=== PATIENT | female | born 1950 | race Caucasian/White ===

== ENCOUNTER → 2017-12-19 | Outpatient (CLI) | payer MEDICARE ==
[2017-12-19 15:33] LABS: HCT 42.9 % (34.0-46.0); HGB 13.9 gm/dL (11.4-16.0); MCH 28.7 pg (25.0-35.0); MCHC 32.3 g/dL (31.0-37.0); MCV 88.7 fL (80.0-100.0); Mean Platelet Volume 7.1; Platelet Count 351 k/uL (150-450); RBC 4.84 m/uL (3.80-5.40); RDW 12.9 % (11.5-15.5); WBC 9.5 k/uL (3.8-10.6)
[2017-12-19 15:50] LABS: ALT 30 U/L (9-52); AST 31 U/L (14-36); Albumin 4.5 g/dL (3.5-5.0); Alkaline Phosphatase 95 U/L (38-126); Anion Gap 14 mmol/L; Blood Urea Nitrogen 13 mg/dL (7-17); Calcium 9.9 mg/dL (8.4-10.2); Carbon Dioxide 32 mmol/L (22-30); Chloride 101 mmol/L (98-107); Cholesterol 189 mg/dL (<200); Glucose 101 mg/dL (74-99); HDL Cholesterol 70 mg/dL (40-60); LDL Cholesterol,Calculated 80 mg/dL (0-99); Potassium 4.6 mmol/L (3.5-5.1); Sodium 147 mmol/L (137-145); Total Bilirubin 0.5 mg/dL (0.2-1.3); Total Protein 7.6 g/dL (6.3-8.2); Triglycerides 196 mg/dL (<150)
[2017-12-19 21:03] LABS: Hemoglobin A1C 6.2 % (4.0-6.0)
== END | disposition home or self-care (01) ==
LOC: LABWHC1 15:10
PROVIDERS: ATTEND Family Medicine
DX: E11.9 Type 2 diabetes mellitus without complications (principal); I20.9 Angina pectoris, unspecified
CPT/HCPCS: 36415; 80053; 80061; 83036; 83695; 84443; 85027

== ENCOUNTER → 2018-02-13 | Outpatient (CLI) | payer MEDICARE ==
--- NOTE | 2018-02-13 12:39 | P.STRESS ---
- Stress Test Note Stress Test Results/Findings: Exam Performed: stress echo exercise Exam Date: 02/13/18 Reason for Exam: CHEST PAIN Height: 5 ft 5 in Weight: 65.771 kg Protocol: ALFRED+ Stage: 2 Duration of Exercise: 4:00 Resting Heart Rate: 78 Resting Blood Pressure: 151/67 Maximum Achieved Heart Rate: 149 Maximum Achieved Blood Pressure: 199/59 85% PMHR: 129 100% PMHR: 152 METS: 5.8 Technologist Comment: Stress Test Results/Findings: This is a 67-year-old female with history of her hypertension and hypercholesterolemia and smoking history, being evaluated for symptoms of chest pain, shortness of breath and palpitations. Stress data: Baseline EKG showed sinus rhythm with nonspecific ST-T abnormalities. Patient walked on the Alfred protocol for 4 minutes achieving a maximum heart rate of 149 with a blood pressure of 199/59. EKGs taken during and after the exercise did not reveal any changes to suggest ischemia. Echo data: Baseline echo images showed normal wall motion and thickening. Exercise echo images showed augmentation of the wall motion and thickening in all segments. Final impression: #1. Negative stress test #2. Negative stress echo.
== END | disposition home or self-care (01) ==
LOC: RADNMMAIN 09:47
PROVIDERS: ATTEND Family Medicine
DX: R07.9 Chest pain, unspecified (principal)
CPT/HCPCS: 93351

== ENCOUNTER → 2019-02-20 | Outpatient (CLI) | payer MEDICARE ==
[2019-02-20 10:47] LABS: Basophils # (A) 0.1 k/uL (0-0.2); Basophils % (A) 1 %; Eosinophils # (A) 0.2 k/uL (0-0.7); Eosinophils % (A) 2 %; HCT 42.3 % (34.0-46.0); HGB 13.1 gm/dL (11.4-16.0); Lymphocytes # (A) 1.9 k/uL (1.0-4.8); Lymphocytes % (A) 27 %; MCH 28.3 pg (25.0-35.0); MCHC 30.9 g/dL (31.0-37.0); MCV 91.8 fL (80.0-100.0); Mean Platelet Volume 6.9; Monocytes # (A) 0.4 k/uL (0-1.0); Monocytes % (A) 6 %; Neutrophils # (A) 4.3 k/uL (1.3-7.7); Neutrophils % (A) 62 %; Platelet Count 331 k/uL (150-450); RBC 4.61 m/uL (3.80-5.40); RDW 13.5 % (11.5-15.5)
[2019-02-20 13:05] LABS: Appearance,Urine Clear (Clear); Bilirubin,Urine Negative (Negative); Blood,Urine Negative (Negative); Color,Urine Yellow; Glucose,Urine (UA) Negative (Negative); Ketones,Urine Negative (Negative); Leukocyte Esterase,Urine Small (Negative); Mucus,Urine Rare /hpf; Nitrite,Urine Negative (Negative); PH, Urine 6.5 (5.0-8.0); Protein,Urine Negative (Negative); RBC,Urine <1 /hpf (0-5); Specific Gravity,Urine 1.016 (1.001-1.035); Squamous Epithelial Cell,Urine <1 /hpf (0-4); Urobilinogen,Urine <2.0 mg/dL (<2.0); WBC,Urine 4 /hpf (0-5)
[2019-02-20 16:40] LABS: African American GFR (CKD) 102.5 (60.0-200.0); Albumin 4.4 g/dL (3.80-4.90); Albumin/Globulin Ratio 1.63 (1.60-3.17); Anion Gap 11.5 mmol/L (4.00-12.00); BUN/Creat Ratio 17.14 Ratio (12.00-20.00); Calcium 9.6 mg/dL (8.7-10.3); Carbon Dioxide 28.5 mmol/L (21.6-31.8); Globulin 2.7 g/dL (1.6-3.3); Potassium 4.8 mmol/L (3.5-5.5); Total Bilirubin 0.5 mg/dL (0.3-1.2); Total Protein 7.1 g/dL (6.2-8.2)
[2019-02-20 17:41] LABS: Hemoglobin A1C 6.1 % (4.0-6.0)
== END | disposition home or self-care (01) ==
LOC: LABWHC1 09:24
PROVIDERS: ATTEND Family Medicine
DX: I10 Essential (primary) hypertension (principal); R73.9 Hyperglycemia, unspecified
CPT/HCPCS: 36415; 80053; 80061; 81001; 83036; 84439; 84443; 85025

== ENCOUNTER → 2020-04-26 | Outpatient (CLI) | payer MEDICARE ==
[2020-04-26 09:48] LABS: Basophils # (A) 0.1 k/uL (0-0.2); Basophils % (A) 1 %; Eosinophils # (A) 0.1 k/uL (0-0.7); Eosinophils % (A) 1 %; HCT 44.2 % (34.0-46.0); HGB 14.1 gm/dL (11.4-16.0); Lymphocytes # (A) 2.4 k/uL (1.0-4.8); Lymphocytes % (A) 24 %; MCH 29.3 pg (25.0-35.0); MCHC 31.8 g/dL (31.0-37.0); MCV 92.1 fL (80.0-100.0); Mean Platelet Volume 7.3; Monocytes # (A) 0.7 k/uL (0-1.0); Monocytes % (A) 7 %; Neutrophils # (A) 6.6 k/uL (1.3-7.7); Neutrophils % (A) 66 %; Platelet Count 326 k/uL (150-450); RBC 4.79 m/uL (3.80-5.40); RDW 13.7 % (11.5-15.5); WBC 10.1 k/uL (3.8-10.6)
[2020-04-26 09:55] LABS: Potassium 4.7 mmol/L (3.5-5.1)
== END | disposition home or self-care (01) ==
LOC: LABPAT 08:48
PROVIDERS: ATTEND Orthopaedic Surgery
DX: Z01.818 Encounter for other preprocedural examination (principal); M75.42 Impingement syndrome of left shoulder
CPT/HCPCS: 36415; 80051; 85025; 93005

== ENCOUNTER 2020-04-29 09:14 | Day surgery (SDC) | payer MEDICARE ==
[2020-04-27 08:55] VITALS: BMI 25.0
--- NOTE | 2020-04-28 15:14 | HP ---
HISTORY AND PHYSICAL DATE OF SURGERY: 04/29/2020 Antoinette Ellis is a 69-year-old patient seen with progressive left shoulder pain. We discussed options for treatment. She elected to proceed with arthroscopy. Consent was obtained. PAST MEDICAL HISTORY: Hypertension, gastroesophageal reflux disease. PAST SURGICAL HISTORY: Cataract surgery, cholecystectomy, hysterectomy, right total knee arthroplasty. DAILY MEDICATIONS: Aspirin, atorvastatin, losartan, metoprolol, omeprazole, vitamins. ALLERGIES: AMOXICILLIN, ERYTHROMYCIN. SOCIAL HISTORY: She denies current tobacco use. PHYSICAL EVALUATION OF THE LEFT SHOULDER: Flexion is 120 degrees, abduction is 100 degrees, external rotation is 25 degrees with weakness,.tenderness along the anterolateral acromion and acromioclavicular joint. Impingement positive 80. Drop-arm sign is positive. Distal neurovascular exam is intact. RADIOGRAPHS: Radiographs of the left shoulder revealed a type 2 acromion, acromioclavicular joint osteoarthritis and cystic changes of the tuberosity. Left shoulder MRI revealed a labral tear, rotator cuff tear and osteoarthritic changes. IMPRESSION: 1. Left shoulder impingement with rotator cuff tear. 2. Left shoulder labral tear. 3. Hypertension. 4. Hyperlipidemia. PLAN: Arthroscopy left shoulder with decompression, rotator cuff repair, Ritu and debridement. MMODL / IJN: [id number] /
[~2020-04-29 09:14] MED LIST: LACTATED RINGERS 1,000 ML IV SCH
[2020-04-29] MEDS ORDERED: ONDANSETRON 4 MG/2 ML VIAL ONE (10:03)
[2020-04-29] MEDS ORDERED: LIDOCAINE 1% (10MG/ML) FOR IV START INTRADERMA ONE (10:10)
[2020-04-29] MEDS ORDERED: DEXAMETHASONE SOD PHOSPHATE 10 MG/ML 1 ML VIAL IV ONE (10:10)
[2020-04-29] MEDS ORDERED: MIDAZOLAM 2 MG/2 ML VIAL IV ONE (10:16)
[2020-04-29] MEDS ORDERED: fentaNYL (PF) 50 MCG/ML 2 ML AMP IV ONE (10:16)
--- NOTE | 2020-04-29 10:38 | P.ANPRN ---
Procedure Note - Anesthesia - Nerve Block Performed Left Interscalene Single Time Out Performed: Yes (1016) Date of Procedure: 04/29/20 Procedure Start Time: :17 Procedure Stop Time: : Location of Patient: PreOp Indication: Acute Post-Operative Pain, Requested by Surgeon Specifically requested for management of pain by DrToya: Jessee Carl Sedation Type: Sedate with meaningful contact maintained Preparation: Sterile Prep Position: Supine Catheter: None Needle Types: Pajunk Needle Gauge: 21 Ultrasound used to visualize needle placement: Yes Ultrasound used to observe medication spread: Yes Injectate: 0.5% Ropivacaine (see comment for volume) (30CC) Blood Aspirated: No Pain Paresthesia on Injection Noted: No Resistance on Injection: Normal Image Stored and Saved: Yes Events: Uneventful and Well Tolerated
[2020-04-29] MEDS ORDERED: SUCCINYLCHOLINE CHLORIDE 100 MG/5 ML SYR IV ONE (11:04)
[2020-04-29] MEDS ORDERED: MIDAZOLAM 2 MG/2 ML VIAL ONE (11:04)
[2020-04-29] MEDS ORDERED: PROPOFOL 10 MG/ML 20 ML VIAL IV ONE (11:04)
[2020-04-29] MEDS ORDERED: ROPIVACAINE 5 MG/ML 30 ML VIAL ONE (11:04)
[2020-04-29] MEDS ORDERED: LIDOCAINE 1% INJ 10MG/ML (20 ML MDV) ONE (11:04)
--- NOTE | 2020-04-29 12:41 | P.OP ---
Date of Procedure: 04/29/20 Preoperative Diagnosis: Left shoulder impingement Postoperative Diagnosis: 1. Left shoulder rotator cuff tear 2. Left shoulder impingement 3. Left shoulder acromioclavicular joint osteoarthritis 4. Left shoulder partial long head biceps tendon tear 5. 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 Left shoulder arthroscopic rotator cuff repair 2. Left shoulder arthroscopic subacromial decompression 3. Left shoulder arthroscopic Ritu procedure 4. Left shoulder arthroscopic biceps tenotomy 5. Left shoulder arthroscopic chondroplasty glenohumeral joint Implants: 14.75 Arthrex swivel lock anchor Anesthesia: GETA, regional (Interscalene block) Surgeon: Jessee Carl Rn Managed Care #1: Mayo Garcia Estimated Blood Loss (ml): 10 Pathology: none sent Condition: stable Disposition: PACU Indications for Procedure: 69-year-old patient seen with progressive left shoulder pain. After treatment options were discussed, she elected to proceed with arthroscopy. Operative Findings: See description of procedure Description of Procedure: Patient underwent an interscalene block by department of anesthesia. The patient was then taken to the operative suite. The patient underwent a general anesthetic by the department of anesthesia. The patient was placed into a lateral position and secured. There was appropriate padding of the bony prominence. Left shoulder was then prepped and draped in normal sterile orthopedic fashion. We placed the extremity in 10 pounds of longitudinal traction. A posterior incision was now made for a posterior working portal site. The trocar and cannula were inserted into the glenohumeral joint. Arthroscopy was initiated. Spinal needle was now inserted anteriorly, to ascertain the anterior working portal site. An incision was now made in that area, a trocar was inserted followed by a probe. There was partial tearing and hyperemia long head biceps tendon. There was grade 3/4 chondromalacia of both the humeral head and glenoid fossa. There was some osteochondral tears of both sides mainly involving the superior aspect of the glenoid fossa. There was a rotator cuff tear visualized from glenohumeral side. I performed an arthroscopic biceps tenotomy. I performed a chondroplasty of the glenoid fossa. The residual osteochondral surface was stable again noting grade 3/4 chondromalacia. Instruments were now removed from glenohumeral joint. Utilizing the posterior working portal site, the trocar and cannula were inserted into the subacromial space. Arthroscopy initiated. I made an incision 2 fingerbreadths lateral to the acromion. I introduced my trocar followed by my ArthroCare ablator. I now began ablating thick subacromial bursal tissue, which exposed the undersurface of the anterior acromion. There was diminished subacromial space. There was a very prominent anterior acromion. A motorized bur was introduced and a subacromial decompression was performed. I also excised some osteophytes off the inferior aspect of the distal clavicle. The AC joint was visualized and noted to be fairly arthritic. The motorized bur was introduced in the anterior portal site and a Ritu procedure was performed without difficulty, decompressing the AC joint nicely. I turned my attention to the rotator cuff. There was a 11.5 cm rotator cuff tear. I debrided the nadeem ns getting down to stable tendon tissue. I abraded the footprint with a motorized bur. I passed 2 everted mattress sutures through good bites of rotator cuff tendon. I passed all 4 limbs of suture through the eyelet of a 4.75 Arthrex swivel lock anchor. I placed the eyelet into a pre-punched hole I created in the area the footprint. Sravan GIFFORD tensioned all 4 suture limbs and then deployed the anchor with good fixation noted. All residual suture limbs were now clipped. We had good compression of the tendon along the entire footprint. I injected 1 mL Renyte intra-articular. Instruments now removed from the portal sites. All portal sites were approximated with nylon suture. Sterile dressings were applied followed by a shoulder sling. Mayo GIFFORD assisted in this complex case. The patient was awakened, transferred to a bed, and taken to recovery in stable condition.
[2020-04-29 12:44] VITALS: TEMP 97
[2020-04-29] MEDS ORDERED: LABETALOL SYRINGE 5 MG/ML IVP ONE (13:30)
[2020-04-29 14:13] VITALS: RESP 18
[2020-04-29 14:54] VITALS: BP 164/74; PULSE 69
== END 2020-04-29 14:54 | disposition home or self-care (01) ==
LOC: OR 09:14
PROVIDERS: ATTEND Orthopaedic Surgery
DX: M75.102 Unspecified rotator cuff tear or rupture of left shoulder, not specified as traumatic (principal); M19.012 Primary osteoarthritis, left shoulder; S46.112A Strain of muscle, fascia and tendon of long head of biceps, left arm, initial encounter; M94.212 Chondromalacia, left shoulder; M25.712 Osteophyte, left shoulder; I10 Essential (primary) hypertension; E78.5 Hyperlipidemia, unspecified; G47.33 Obstructive sleep apnea (adult) (pediatric); K21.9 Gastro-esophageal reflux disease without esophagitis; Z88.0 Allergy status to penicillin; Z88.1 Allergy status to other antibiotic agents; Z79.891 Long term (current) use of opiate analgesic; Z79.899 Other long term (current) drug therapy; Z79.82 Long term (current) use of aspirin; Z90.710 Acquired absence of both cervix and uterus; Z96.651 Presence of right artificial knee joint; Z90.49 Acquired absence of other specified parts of digestive tract
CPT/HCPCS: 64415; 76942; 29824; 29826; 29827; C1713; C1894; Q4212; J2250; J1100; J2405; J0690; J2001; J3010; J2795; J0330; J2704

== ENCOUNTER → 2020-11-26 | Outpatient (CLI) | payer MEDICARE ==
[2020-11-26 14:34] LABS: HCT 40.3 % (37.2-46.3); HGB 12.5 g/dL (12.0-15.0); MCH 30.1 pg (27.0-32.0); MCV 97.1 fL (80.0-97.0); Mean Platelet Volume 10.1 fL (9.5-12.2); Platelet Count 360 X 10*3/uL (140-440); RBC 4.15 X 10*6/uL (4.10-5.20); RDW 13.2 % (11.5-14.5)
[2020-11-26 16:44] LABS: Albumin 4.4 g/dL (3.80-4.90); Anion Gap 11.1 mmol/L (4.00-12.00); BUN/Creat Ratio 18.75 Ratio (12.00-20.00); Calcium 9.6 mg/dL (8.7-10.3); Carbon Dioxide 28.9 mmol/L (21.6-31.8); Chol/HDL Ratio 3.06; Globulin 2.2 g/dL (1.6-3.3); LDL Cholesterol,Calculated 109.2 mg/dL (0.0-131.0); Non-African American GFR(CKD) 74.2 (60.0-200.0); Potassium 4.4 mmol/L (3.5-5.5); Total Bilirubin 0.7 mg/dL (0.2-1.2); Total Protein 6.6 g/dL (6.2-8.2); VLDL Calculation 30.8 mg/dL (5.00-40.00)
== END | disposition home or self-care (01) ==
LOC: LABWHC1 09:03
PROVIDERS: ATTEND Internal Medicine Interventional Cardiology
DX: E78.2 Mixed hyperlipidemia (principal); R07.9 Chest pain, unspecified
CPT/HCPCS: 36415; 80053; 80061; 85027

== ENCOUNTER 2020-12-02 06:26 | Day surgery (SDC) | payer MEDICARE ==
[2020-11-30 12:06] VITALS: BMI 25.0
[~2020-12-02 06:26] MED LIST changes: +ALPRAZolam 0.25 MG TAB PO PRN; +ALPRAZolam 0.5 MG TAB PO PRN; +ASPIRIN 325 MG TAB PO STA; +HEPARIN SODIUM,PORCINE 10,000 UNIT in SODIUM CHLORIDE 0.9% 1,000 ML IRRIGATION PRN; +HEPARIN SODIUM,PORCINE 2,500 UNIT in SODIUM CHLORIDE 0.9% 250 ML IRRIGATION PRN; -LACTATED RINGERS 1,000 ML IV SCH; +NITROGLYCERIN SL TABS 0.4 MG TAB SUBLINGUAL PRN; +SODIUM CHLORIDE 0.9% 1,000 ML in EMPTY BAG 1 BAG IV ONE
[2020-12-02] MEDS ORDERED: SODIUM CHLORIDE 0.9% 1,000 ML IV ONE (06:48)
[2020-12-02 07:08] VITALS: RESP 16; TEMP 97.4
[2020-12-02] MEDS ORDERED: fentaNYL (PF) 50 MCG/ML 2 ML AMP IV ONE (07:38)
[2020-12-02] MEDS ORDERED: LIDOCAINE 1% INJ 10MG/ML (20 ML MDV) SQ ONE ×2 (07:45→07:46)
[2020-12-02] MEDS ORDERED: VERAPAMIL SYRINGE (5 MG/10 ML) INTRAARTER ONE ×2 (07:48→07:49)
[2020-12-02] MEDS ORDERED: MIDAZOLAM 2 MG/2 ML VIAL IV ONE (07:49)
[2020-12-02] MEDS ORDERED: HEPARIN SODIUM 1,000 UN/ML (10ML VL) IV ONE (07:53)
[2020-12-02] MEDS ORDERED: IOPAMIDOL-370 125ML BTL INJ ONE (07:59)
[2020-12-02] MEDS ORDERED: RX INFO: IV CONTRAST WAS GIVEN 1 EACH MISC MISCELLANE PRN (08:18)
[2020-12-02] MEDS ORDERED: SODIUM CHLORIDE 0.9% 1,000 ML IV SCH (08:30)
--- NOTE | 2020-12-02 08:43 | CC ---
CARDIAC CATHETERIZATION REPORT Mrs. Ellis is a 70-year-old female with known history of hypertension, hyperlipidemia, who has been complaining of progressive dyspnea and progressive fatigue. She underwent a myocardial perfusion imaging that revealed evidence of inducible ischemia. In view of that, recommendation was made regarding cardiac catheterization, the procedure as well as the risks and the complications were discussed with the patient who is in full understanding and agreement. PROCEDURE: Patient was brought to the agriculture laboratory technician in a fasting semi-sedated state after receiving fentanyl and Benadryl and achieving moderate conscious sedated state. Using Xylocaine anesthesia and Seldinger technique, a 6-Sinhala sheath was introduced in the right radial artery. Selective right and left coronary angiography performed using 5-Sinhala 3.5 bend right and left Melissa catheter. Multiple views of the coronary artery including hemiaxial views were obtained. The left Melissa was used to cross the aortic valve. Left ventricular end-diastolic pressure was calculated. Following that catheter and sheath were removed. Hemostasis was obtained with deployment of TR band. There was no immediate complication. Patient was returned to her room in stable condition. Of note, the patient received 3500 units of intravenous heparin as well as intra-arterial verapamil. FINDINGS: LEFT MAIN: This is a large-size vessel, bifurcating into left circumflex, left anterior descending artery. Left main coronary artery has no evidence of high-grade stenosis. LEFT ANTERIOR DESCENDING ARTERY: This is a large-size vessel reaching to the apex with a wraparound apex segment giving rise to a large diagonal branch in the mid segment. The left anterior descending artery as well as branches have no evidence of obstructive coronary artery disease. LEFT CIRCUMFLEX: This is a nondominant vessel giving rise to a large obtuse marginal branch. The second obtuse marginal branch is small in caliber. The left circumflex as well as branches have no evidence of obstructive coronary artery disease. RIGHT CORONARY ARTERY: This is a large dominant vessel bifurcating PDA and posterolateral segment and branches. The right coronary artery and its branches have no evidence of obstructive coronary artery disease. LEFT VENTRICULOGRAM: Left ventriculogram was not performed. HEMODYNAMICS: There was no gradient across the aortic valve. The left ventricular end-diastolic pressure was 14 to 18 mmHg. CONCLUSION: 1. Normal coronary arteries. 2. Right dominance. RECOMMENDATIONS: In view of finding anatomy, I recommend continue medical therapy with aggressive coronary risk modifications that have been initiated. Those findings and recommendation were discussed with the patient and her family. They are in full understanding and agreement. Duration of sedation is 15 minutes. MMODL / IJN: [id number] /
[2020-12-02] MEDS ORDERED: MULTIVITAMINS, THERA 1 EACH TAB PO SCH (09:00)
[2020-12-02] MEDS ORDERED: DULoxetine HCL 30 MG CAPSULE.DR PO SCH (09:00)
[2020-12-02] MEDS ORDERED: NON FORMULARY DRUG (Metoprolol Tartrate [Lopressor] 100 MG Tablet) PO SCH (09:00)
[2020-12-02] MEDS ORDERED: ATORVASTATIN 40 MG TAB PO SCH (09:00)
[2020-12-02] MEDS ORDERED: LOSARTAN 50 MG TAB PO SCH (09:00)
[2020-12-02] MEDS ORDERED: NON FORMULARY DRUG (Cholecalciferol 1,000 UNIT Tab) PO SCH (09:00)
[2020-12-02] MEDS ORDERED: NON FORMULARY DRUG (Omeprazole [Omeprazole] 20 MG Tablet.Dr) PO SCH (09:00)
[2020-12-02] MEDS ORDERED: NON FORMULARY DRUG (Tramadol Hcl 50 MG Tablet) PO SCH (09:00)
[2020-12-02] MEDS ORDERED: NON FORMULARY DRUG (Ubidecarenone [Co Q-10] 100 MG Capsule) PO SCH (09:00)
[2020-12-02 10:01] VITALS: PULSE 55
[2020-12-02 14:05] VITALS: BP 148/72
[2020-12-02] MEDS ORDERED: NON FORMULARY DRUG (Aspirin [Adult Low Dose Aspirin Ec] 81 MG Tablet.Dr) PO SCH (21:00)
[2020-12-02] MEDS ORDERED: OXYBUTYNIN 15 MG TAB.ER.24 PO SCH (21:00)
== END 2020-12-02 13:05 | disposition home or self-care (01) ==
LOC: CATHCVL 06:26
PROVIDERS: ATTEND Internal Medicine Interventional Cardiology
DX: R07.89 Other chest pain (principal); R94.39 Abnormal result of other cardiovascular function study; I10 Essential (primary) hypertension; E78.2 Mixed hyperlipidemia; R06.00 Dyspnea, unspecified; R53.83 Other fatigue; E78.00 Pure hypercholesterolemia, unspecified; Z90.710 Acquired absence of both cervix and uterus; Z87.891 Personal history of nicotine dependence; Z96.659 Presence of unspecified artificial knee joint; Z90.49 Acquired absence of other specified parts of digestive tract; Z90.89 Acquired absence of other organs; Z82.49 Family history of ischemic heart disease and other diseases of the circulatory system; Z79.82 Long term (current) use of aspirin; Z79.899 Other long term (current) drug therapy; Z88.1 Allergy status to other antibiotic agents; Z88.0 Allergy status to penicillin
CPT/HCPCS: 93458; C1769; C1894; J2250; J2001; J3010; J1644; Q9967

== ENCOUNTER → 2020-12-21 | Outpatient (CLI) | payer MEDICARE ==
--- NOTE | 2021-01-26 12:55 | EM ---
EVENT MONITOR AGE:: 70 SEX:: Fe INDICATIONS:: Hypertension. Underlying rhythm is sinus with occasional PVCs and PACs are noted. There were no episodes of sustained ventricular or supraventricular tachyarrhythmia. There were no episodes of more than 2 second pauses. CONCLUSIONS: This 30 day event monitor revealed sinus rhythm with a rare PVCs and PACs. MMODL / IJN: [id number] /
== END | disposition home or self-care (01) ==
LOC: RADECHMAIN 11:39
PROVIDERS: ATTEND Family Medicine
DX: I49.1 Atrial premature depolarization (principal); I49.3 Ventricular premature depolarization
CPT/HCPCS: 93270

== ENCOUNTER → 2021-02-15 | Outpatient (CLI) | payer MEDICARE ==
--- NOTE | 2021-02-15 13:50 | P.SLEEP ---
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 The patient was referred to me for sleep apnea evaluation. This patient was given a sleep evaluation many years back. Back then she was given a CPAP machine which she uses briefly and ultimately she ended up quitting the treatment. Over the years, she became progressively more symptomatic and she started snoring loud and stop breathing as noted by her and she is also having excessive fatigue and tiredness and sleepiness during the day. She grinds her teeth she wakes up with dry mouth. She does have some occasional episodes where she wakes up gasping for air. Her sleep is rather restless. She will occasionally has some heartburns. She is awake and up tired and fatigued during the day. Her Mableton scores of 8. No sleepwalking. No sleep talking. No significant weight gain over the years. Probably she has gained around 10 pounds. No sleep paralysis. No hallucinations. No cataplexy. Based on all this, the patient is very much interested in a reevaluation.note that on few instances where the patient was having surgery, she developed some postoperative hypoxemia and respiratory insufficiency and the possibility of obstructive sleep apnea was also raised.for now, the patient is going to bed around 9 PM. She is making him sick 30 a.m. in the morning. She is averaging about 8 hours of sleep. She prefers to sleep on her side. No naps during the day. No significant weight cannot of the 10 pounds. Review of Systems Constitutional: Reports daytime sleepiness, Reports fatigue, Reports weight gain (all in order of 10 pounds) Eyes: denies as per HPI, denies blurred vision, denies bulging eye, denies decreased vision, denies diplopia, denies discharge, denies dry eye, denies irritation, denies itching, denies pain, denies photophobia, denies loss of peripheral vision, denies loss of vision, denies tunnel vision/blind spots Ears: deny: decreased hearing, ear discharge, earache, tinnitus Breasts: absent: as per HPI, change in shape, gynecomastia, masses, nipple discharge, pain, skin changes, swelling Cardiovascular: Reports palpitations Respiratory: Reports as per HPI, Reports snoring Gastrointestinal: Reports as per HPI Genitourinary: Reports as per HPI Menstruation: Reports as per HPI Musculoskeletal: Reports as per HPI (knee injury secondary to a trauma as the patient's knee got kicked by a horse) Musculoskeletal: absent: ankle pain, ankle stiffness, ankle swelling Integumentary: Reports as per HPI Neurological: Reports as per HPI Psychiatric: Reports as per HPI, Reports sleep disturbances Endocrine: Reports as per HPI, Reports fatigue Hematologic/Lymphatic: Reports as per HPI Past Medical History Past Medical History: Hyperlipidemia, Hypertension, Sleep Apnea/CPAP/BIPAP Additional Past Surgical History / Comment(s): total hysterectomy, cholecystectomy, cataract surgery, ACL reconstruction surgery again arthroscopy 3, total knee replacement with subsequent revision, left knee meniscus repair, left shoulder surgery. Medications and Allergies Home Medications Medication Instructions Recorded Confirmed Type Aspirin [Adult Low Dose Aspirin EC] 81 mg PO HS 04/27/20 12/02/20 History Atorvastatin [Lipitor] 40 mg PO DAILY 04/27/20 12/02/20 History Cholecalciferol [Vitamin D3 (25 2,000 unit PO DAILY 04/27/20 12/02/20 History Mcg = 1000 Iu)] DULoxetine HCL [Cymbalta] 30 mg PO BID 04/27/20 12/02/20 History Losartan [Cozaar] 50 mg PO BID 04/27/20 12/02/20 History Metoprolol Tartrate [Lopressor] 100 mg PO BID 04/27/20 12/02/20 History Multivitamins, Thera [Multivitamin 1 tab PO DAILY 04/27/20 12/02/20 History (formulary)] Omeprazole 20 mg PO BID 04/27/20 12/02/20 History Oxybutynin Chloride [Oxybutynin 15 mg PO HS 04/27/20 12/02/20 History Chloride ER] Ubidecarenone [Co Q-10] 100 mg PO DAILY 04/27/20 12/02/20 History traMADol HCL 50 mg PO QAM 04/27/20 12/02/20 History Allergies Allergy/AdvReac Type Severity Reaction Status Date / Time amoxicillin Allergy GI bleed Verified 11/30/20 12:04 erythromycin base Allergy Rash/Hives Verified 11/30/20 12:04 Physical Exam The patient appeared well nourished and normally developed. Vital signs as documented. Head exam is unremarkable. No scleral icterus or corneal arcus noted. Neck is without jugular venous distension, thyromegaly, or carotid bruits. the patient has significant crowding of the posterior oropharynx and the patient has a Mallampati class IV. Carotid upstrokes are brisk bilaterally. Lungs are clear to auscultation and percussion. Cardiac exam reveals the PMI to be normally sized and situated. Rhythm is regular. First and second heart sounds normal. No murmurs, rubs or gallops. Abdominal exam reveals normal bowel sounds, no masses, no organomegaly and no aortic enlargement. Extremities are nonedematous and both femoral and pedal pulses are normal.Examination of the skin revealed no evidence of significant rashes, suspicious appearing nevi or other concerning lesions.Neurologically, the patient is awake and alert and the patient does not have any focal neurological deficit. Cranial nerves are essentially intact. Assessment and Plan Plan: 1 obstructive sleep apnea. The patient was diagnosed having OVIDIO many years back and coming in for reevaluation. Mother this patient has utilize CPAP therapy in the past for a brief period of time and ultimately end up leaving the treatment. Over the years, she seems to have become more symptomatic. She has gained only 10 pounds. She has undergone various orthopedic surgery and postop she has been told to have clearly signs of obstructive sleep apnea. She has become more somnolent and sleepy. Current Mableton score is at 8.. She is requesting a reevaluation. We will going to proceed with a home sleep study. 2 hypertension 3 hyperlipidemia 4 arthritis and the patient undergone previous knee surgeries for a traumatic injury to her right knee 5 Palpitation. Cardiac workup was done by Dr. Simms including a stress test, cardiac catheterization and echocardiogram and all of this workup has been essentially negative. plan Proceed with a home sleep study to evaluate the presence and severity of sleep apnea and decide if treatment is needed accordingly. The patient is currently taking care of her is quite ill and she prefers to do the study at home and for that reason I set her up for a home sleep study testing which should be enough to establish the presence and the severity of sleep apnea. We'll contact the patient back and discuss treatment plan accordingly. Sleep Note - Sleep Data Previous Sleep Study: Yes PAP Device: CPAP - Sleep Note Sleep Note: Temperature: 97 8 Pulse Rate: 88 Respiratory Rate: 16 Blood Pressure: 143/76 SpO2: 98% Height: 5 feet and 5 inches Weight: 157 BMI: 26 Neck Circumference: 15-1/4 of an inch
== END ==
LOC: SLEEP 13:16
PROVIDERS: ATTEND Internal Medicine Critical Care Medicine
DX: G47.33 Obstructive sleep apnea (adult) (pediatric) (principal); I10 Essential (primary) hypertension; E78.5 Hyperlipidemia, unspecified; M19.90 Unspecified osteoarthritis, unspecified site; R00.2 Palpitations; Z98.890 Other specified postprocedural states; Z79.899 Other long term (current) drug therapy; Z79.82 Long term (current) use of aspirin; Z88.1 Allergy status to other antibiotic agents; Z99.89 Dependence on other enabling machines and devices
CPT/HCPCS: 99211

== ENCOUNTER → 2021-03-22 | Outpatient (CLI) | payer MEDICARE ==
--- NOTE | 2021-03-22 12:41 | MR ---
EXAMINATION TYPE: MR shoulder RT wo con DATE OF EXAM: 03/22/2021 11:46 AM COMPARISON: NONE HISTORY: Persistent right shoulder pain due to injury 6 months ago, limited range of movement. TECHNIQUE: Multiplanar multispin echo imaging of the right shoulder was performed. FINDINGS: Rotator cuff : Heterogeneity and thinning of the supraspinatus tendon compatible chronic tendinopathy . Partial tear noted at the critical zone with a few fibers remaining intact. The remaining constitue nts of the rotator cuff appear to be grossly intact. Bursa: No bursal effusion or thickening is seen. Musculature: There is no muscular tear, contusion, or atrophy. Acromioclavicular joint : Lateral downsloping of the acromion with subacromial spur formation results in impingement. Osseous structures : There are no fractures or regions of abnormal bone marrow signal intensity. Long biceps tendon : The biceps tendon is normally situated within the bicipital groove. No complete or partial biceps tendon tear is present. Glenohumeral Joint fluid : There is no glenohumeral joint effusion. Cartilage and Bone : No focal hyaline cartilage defects are noted. No Hill-Sachs, reverse Hill-Sachs, or bony Bankart lesions are seen. Labrum : There are no SLAP or soft tissue Bankart lesions. No paralabral cysts are seen. OTHER FINDINGS : Degenerative spur formation about the greater tuberosity with subchondral cyst forma tion noted as well. IMPRESSION: 1. 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 High-grade partial tear at the level of the critical zone.
== END | disposition home or self-care (01) ==
LOC: RADMRIMAIN 10:44
PROVIDERS: ATTEND Orthopaedic Surgery
DX: M75.111 Incomplete rotator cuff tear or rupture of right shoulder, not specified as traumatic (principal)

== ENCOUNTER → 2021-03-28 | Outpatient (CLI) | payer MEDICARE ==
[2021-03-28 16:22] LABS: Albumin 4.4 g/dL (3.80-4.90); Albumin/Globulin Ratio 1.69 (1.60-3.17); Anion Gap 8.3 mmol/L (4.00-12.00); BUN/Creat Ratio 16.25 Ratio (12.00-20.00); Calcium 9.7 mg/dL (8.7-10.3); Carbon Dioxide 32.7 mmol/L (21.6-31.8); Chol/HDL Ratio 3.1; Globulin 2.6 g/dL (1.6-3.3); LDL Cholesterol,Calculated 73.8 mg/dL (0.0-131.0); Non-African American GFR(CKD) 74.2 (60.0-200.0); Total Bilirubin 0.6 mg/dL (0.3-1.2); VLDL Calculation 52.2 mg/dL (5.00-40.00)
[2021-03-28 18:17] LABS: Hemoglobin A1C 6.5 % (4.0-6.0)
== END | disposition home or self-care (01) ==
LOC: LABWHC1 10:16
PROVIDERS: ATTEND Internal Medicine Interventional Cardiology
DX: E11.9 Type 2 diabetes mellitus without complications (principal)
CPT/HCPCS: 36415; 80053; 80061; 83036

== ENCOUNTER → 2021-05-05 | Outpatient (CLI) | payer MEDICARE ==
[2021-05-05 15:07] LABS: Basophils # (A) 0.1 k/uL (0-0.2); Basophils % (A) 1 %; Eosinophils # (A) 0.1 k/uL (0-0.7); Eosinophils % (A) 2 %; HCT 40.9 % (34.0-46.0); HGB 13.2 gm/dL (11.4-16.0); Lymphocytes # (A) 2.2 k/uL (1.0-4.8); Lymphocytes % (A) 28 %; MCH 29.7 pg (25.0-35.0); MCHC 32.2 g/dL (31.0-37.0); MCV 92.1 fL (80.0-100.0); Mean Platelet Volume 7.4; Monocytes # (A) 0.4 k/uL (0-1.0); Monocytes % (A) 5 %; Neutrophils # (A) 4.8 k/uL (1.3-7.7); Neutrophils % (A) 61 %; Platelet Count 339 k/uL (150-450); RBC 4.43 m/uL (3.80-5.40); RDW 14.5 % (11.5-15.5); WBC 7.8 k/uL (3.8-10.6)
[2021-05-05 15:16] LABS: Potassium 4.4 mmol/L (3.5-5.1)
== END | disposition home or self-care (01) ==
LOC: LABPAT 13:56
PROVIDERS: ATTEND Orthopaedic Surgery
DX: Z01.812 Encounter for preprocedural laboratory examination (principal); M75.41 Impingement syndrome of right shoulder
CPT/HCPCS: 36415; 80051; 85025

== ENCOUNTER 2021-05-18 05:49 | Day surgery (SDC) | payer MEDICARE ==
[2021-05-16 09:35] VITALS: BMI 25.7
--- NOTE | 2021-05-17 15:02 | HP ---
HISTORY AND PHYSICAL REASON FOR ADMISSION: Surgery scheduled for 05/18/2021. Antoinette Ellis is a 70-year-old lady seen with progressive right shoulder pain. We discussed options for treatment. She elected to proceed with arthroscopy. Consent is obtained. PAST MEDICAL HISTORY: Hypertension, gastroesophageal reflux disease. PAST SURGICAL HISTORY: Cataract surgery, cholecystectomy, hysterectomy, knee arthroscopy, left shoulder arthroscopy. DAILY MEDICATIONS: Atorvastatin, tramadol, omeprazole, metoprolol, losartan. ALLERGIES: AMOXICILLIN, ERYTHROMYCIN. SOCIAL HISTORY: She denies tobacco use. PHYSICAL EXAMINATION: Evaluation of the right shoulder: Flexion 120, abduction is 90 degrees, external rotation is 10 degrees with weakness. Tenderness along the anterior lateral acromion rotator cuff insertion. Impingement positive at 80 degrees. Drop-arm sign is positive. Cross adduction sign is positive. Distal neurovascular exam is intact. RADIOGRAPHS: Radiographs of the right shoulder revealed a type 2 acromion, acromioclavicular joint osteoarthritis. Right shoulder MRI revealed a high-grade partial rotator cuff tendon tear as well as impingement. IMPRESSION: 1. Right shoulder impingement with rotator cuff tear. 2. Right shoulder acromioclavicular joint osteoarthritis. 3. Hypertension. 4. Hyperlipidemia. 5. Gastroesophageal reflux disease. PLAN: Right shoulder arthroscopy with subacromial decompression, arthroscopic rotator cuff repair, Ritu procedure and debridement. Surgery 05/18/2021. MMODL / IJN: [id number] /
[~2021-05-18 05:49] MED LIST changes: -ALPRAZolam 0.25 MG TAB PO PRN; -ALPRAZolam 0.5 MG TAB PO PRN; -ASPIRIN 325 MG TAB PO STA; +DEXAMETHASONE SOD PHOSPHATE 4 MG/ML 1 ML VIAL IV ONE; -HEPARIN SODIUM,PORCINE 10,000 UNIT in SODIUM CHLORIDE 0.9% 1,000 ML IRRIGATION PRN; -HEPARIN SODIUM,PORCINE 2,500 UNIT in SODIUM CHLORIDE 0.9% 250 ML IRRIGATION PRN; +LACTATED RINGERS 1,000 ML IV SCH; -NITROGLYCERIN SL TABS 0.4 MG TAB SUBLINGUAL PRN; +ONDANSETRON 4 MG/2 ML VIAL IVP ONE; -SODIUM CHLORIDE 0.9% 1,000 ML in EMPTY BAG 1 BAG IV ONE
[2021-05-18] MEDS ORDERED: LIDOCAINE 1% (10MG/ML) FOR IV START INTRADERMA ONE (06:28)
[2021-05-18 06:41] LABS: Glucose,Whole Blood 103 mg/dL (75-99)
[2021-05-18] MEDS ORDERED: HYDROmorphone 0.5 MG/0.5 ML SYRINGE IVP PRN (07:00)
[2021-05-18] MEDS ORDERED: MIDAZOLAM 2 MG/2 ML VIAL IVP ONE (07:10)
[2021-05-18] MEDS ORDERED: ROPIVACAINE 5 MG/ML 30 ML VIAL ONE (07:27)
[2021-05-18] MEDS ORDERED: SUCCINYLCHOLINE CHLORIDE 100 MG/5 ML SYR IV ONE (07:27)
[2021-05-18] MEDS ORDERED: PROPOFOL 10 MG/ML 20 ML VIAL IV ONE (07:27)
[2021-05-18] MEDS ORDERED: LIDOCAINE 1% INJ 10MG/ML (20 ML MDV) ONE (07:27)
[2021-05-18] MEDS ORDERED: ROCURONIUM 10 MG/ML (5 ML VIAL) IV ONE (07:27)
[2021-05-18] MEDS ORDERED: DEXAMETHASONE SOD PHOSPHATE 4 MG/ML 1 ML VIAL ONE (07:27)
[2021-05-18] MEDS ORDERED: GLYCOPYRROLATE 0.2 MG/ML 2 ML VIAL ONE (07:27)
[2021-05-18] MEDS ORDERED: NEOSTIGMINE 1 MG/ML 10 ML VIAL ONE (07:27)
[2021-05-18] MEDS ORDERED: PHENYLEPHRINE-0.9% NACL SYG 1,000 MCG/10 ML SYRINGE ONE (07:27)
[2021-05-18] MEDS ORDERED: fentaNYL (PF) 50 MCG/ML 2 ML AMP ONE (07:27)
[2021-05-18] MEDS ORDERED: MIDAZOLAM 2 MG/2 ML VIAL ONE (07:27)
--- NOTE | 2021-05-18 09:18 | P.OP ---
Date of Procedure: 05/18/21 Preoperative Diagnosis: Right shoulder impingement Postoperative Diagnosis: 1. Right shoulder rotator cuff tear 2. Right shoulder impingement 3. Right shoulder acromioclavicular joint osteoarthritis 4. Right shoulder partial long head biceps tendon tear 5. Right shoulder superficial labral tear 6. 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 Right shoulder arthroscopic rotator cuff repair 2. Right shoulder arthroscopic subacromial decompression 3. Right shoulder arthroscopic Ritu procedure 4. Right shoulder arthroscopic biceps tenotomy 5. Right shoulder arthroscopic debridement labral tear Implants: 15.5 Arthrex swivel lock anchor Anesthesia: GETA, regional (Interscalene block) Surgeon: Jessee Carl Communications Maintainer #1: Mayo Garcia Estimated Blood Loss (ml): 11 Pathology: none sent Condition: stable Disposition: PACU Indications for Procedure: 70-year-old patient seen with progressive right shoulder pain. After treatment options were discussed, she elected to proceed with arthroscopy. Operative Findings: See description of procedure Description of Procedure: Patient underwent an interscalene block by department of anesthesia. The patient was then taken to the operative suite. The patient underwent a general anesthetic by the department of anesthesia. The patient was placed into a lateral position and secured. There was appropriate padding of the bony prominence. Right shoulder was then prepped and draped in normal sterile orthopedic fashion. We placed the extremity in 10 pounds of longitudinal traction. A posterior incision was now made for a posterior working portal site. The trocar and cannula were inserted into the glenohumeral joint. Arthroscopy was initiated. Spinal needle was now inserted anteriorly, to ascertain the anterior working portal site. An incision was now made in that area, a trocar was inserted followed by a probe. It was some superficial tearing of the sup erior labrum. There were grade 2 chondromalacia changes of both the humeral head and glenoid fossa with no osteochondral tears present. There was partial tearing long head biceps tendon with hyperemia. I performed an arthroscopic biceps tenotomy. I debrided the superficial labral tear getting down to stable labral tissue. Residual labrum was stable. Instruments were now removed from the glenohumeral joint. Utilizing the posterior working portal site, the trocar and cannula were inserted into the subacromial space. Arthroscopy initiated. I made an incision 2 fingerbreadths lateral to the acromion. I introduced my trocar followed by my ArthroCare ablator. I now began ablating thick subacromial bursal tissue, which exposed the undersurface of the anterior acromion. There was diminished subacromial space. There was a very prominent anterior acromion. A motorized bur was introduced and a subacromial decompression was performed. I also excised some osteophytes off the inferior aspect of the distal clavicle. The AC joint was visualized and noted to be fairly arthritic. The motorized bur was introduced in the anterior portal site and a Ritu procedure was performed without difficulty, decompressing the AC joint nicely. I turned my attention to the rotator cuff. There was a 1.5 cm rotator cuff tear. I debrided the margins getting down to stable tendon tissue. The defect remaining about 1.5 cm. I abraded the footprint with a motorized bur. I passed 3 everted mattress sutures through good bites of rotator cuff tendon with assistance of Sravan GIFFORD. I punched to home the footprint for insertion of an anchor. All 6 limbs of suture were now passed through the eyelet of a 5.5 Arthrex swivel lock anchor. I placed the eyelet into the pre-punch hole. I held it in the pre-punch hole well Sravan GIFFORD tensioned all 6 suture limbs and deployed the anchor with good fixation noted. All residual suture limbs were now clipped. We had good compression of the tendon along the entire footprint. Instruments now removed from the portal sites. All portal sites were approximated with nylon suture. Sterile dressings were applied followed by a shoulder sling. Sravan GIFFORD assisted in this case. The patient was awakened, transferred to a bed, and taken to recovery in stable condition.
[2021-05-18 09:38] VITALS: RESP 16; TEMP 96.9
[2021-05-18 10:36] VITALS: PULSE 67
[2021-05-18 10:51] VITALS: BP 168/84
--- NOTE | 2021-05-19 07:48 | P.ANPRN ---
Procedure Note - Anesthesia - Nerve Block Performed Right Interscalene Single Time Out Performed: Yes Date of Procedure: 05/19/21 Procedure Start Time: : Procedure Stop Time: :15 Location of Patient: PreOp Indication: Acute Post-Operative Pain, Requested by Surgeon Preparation: Sterile Prep Position: Supine Needle Types: Pajunk Needle Gauge: 21 Ultrasound used to visualize needle placement: Yes Ultrasound used to observe medication spread: Yes Blood Aspirated: No Pain Paresthesia on Injection Noted: No Resistance on Injection: Normal Image Stored and Saved: Yes Events: Uneventful and Well Tolerated (ropi .5% 25cc plus dexamethasone 4mg)
== END 2021-05-18 11:10 | disposition home or self-care (01) ==
LOC: OR 05:49
PROVIDERS: ATTEND Orthopaedic Surgery
DX: M75.111 Incomplete rotator cuff tear or rupture of right shoulder, not specified as traumatic (principal); M25.811 Other specified joint disorders, right shoulder; K21.9 Gastro-esophageal reflux disease without esophagitis; I10 Essential (primary) hypertension; E78.5 Hyperlipidemia, unspecified; G47.33 Obstructive sleep apnea (adult) (pediatric); Z88.0 Allergy status to penicillin; Z88.1 Allergy status to other antibiotic agents; Z90.49 Acquired absence of other specified parts of digestive tract; Z90.710 Acquired absence of both cervix and uterus; Z79.899 Other long term (current) drug therapy
CPT/HCPCS: 29826; 29824; 29827; 29828; 64415; 76942; C1713; J2250; J1100; J2710; J2405; J0690; J2001; J3010; J2795; J2370; J0330; J2704

== ENCOUNTER 2021-12-12 12:41 | Inpatient (IN) | payer MEDICARE ==
[2021-12-02 14:26] LABS: Basophils # (A) 0.07 X 10*3/uL (0.00-0.10); Basophils % (A) 0.9 %; Eosinophils # (A) 0.13 X 10*3/uL (0.04-0.35); Eosinophils % (A) 1.6 %; HCT 42.2 % (37.2-46.3); HGB 13.2 g/dL (12.0-15.0); Immature Grans, Automated 0.4 %; Lymphocytes # (A) 2.15 X 10*3/uL (0.90-5.00); Lymphocytes % (A) 26.8 %; MCH 29.1 pg (27.0-32.0); MCHC 31.3 g/dL (32.0-37.0); Monocytes # (A) 0.67 X 10*3/uL (0.20-1.00); Monocytes % (A) 8.3 %; NRBC Per 100 WBC 0 /100 WBCS (0.0-0.0); Neutrophils # (A) 4.98 X 10*3/uL (1.80-7.70); Platelet Count 305 X 10*3/uL (140-440); RBC 4.54 X 10*6/uL (4.10-5.20); RDW 13.3 % (11.5-14.5); WBC 8.03 X 10*3/uL (4.50-10.00)
[2021-12-02 15:15] LABS: African American GFR (CKD) 92.4 (60.0-200.0); BUN/Creat Ratio 18.16 Ratio (12.00-20.00); Blood Urea Nitrogen 13.6 mg/dL (9.0-27.0); Calcium 9.8 mg/dL (8.7-10.3); Carbon Dioxide 25.5 mmol/L (20.0-27.5); Non-African American GFR(CKD) 79.8 (60.0-200.0); Potassium 5.1 mmol/L (3.5-5.5)
[2021-12-02 15:37] LABS: INR 0.89 (0.90-1.11); Prothrombin Time 10.1 sec (9.9-11.9)
[2021-12-09 09:29] VITALS: BMI 24.9
--- NOTE | 2021-12-11 16:03 | HP ---
HISTORY AND PHYSICAL DATE OF SURGERY: 12/12/2021 Atnoinette Ellis is a 71-year-old patient seen with symptomatic left hip osteoarthritis. We discussed options for treatment. She elected to proceed with direct anterior left total hip arthroplasty. Consent was obtained. Medical clearance was provided by Dr. Elier Yancey. PAST MEDICAL HISTORY: Hypertension, hyperlipidemia, gastroesophageal reflux disease. PAST SURGICAL HISTORY: Bilateral shoulder arthroscopy. DAILY MEDICATIONS: Aspirin, atorvastatin, losartan, metoprolol, omeprazole, tramadol. ALLERGIES: AMOXICILLIN, ERYTHROMYCIN. SOCIAL HISTORY: She denies current tobacco use. PHYSICAL EVALUATION OF LEFT HIP: She has diffuse tenderness about the hip girdle. Very limited range of motion with severe pain. Positive hip impingement sign. Straight-leg raise negative. Distal neurovascular exam is intact. Radiographs of the left hip reveal severe osteoarthritic changes. IMPRESSION: 1. Left hip osteoarthritis. 2. Hypertension. 3. Gastroesophageal reflux disease. PLAN: Direct anterior left total hip arthroplasty. MMODL / IJN: [id number] /
[~2021-12-12 12:41] MED LIST changes: +ACETAMINOPHEN TAB 500 MG TAB PO PRN; +HYDROmorphone 0.5 MG/0.5 ML SYRINGE IVP PRN; -LACTATED RINGERS 1,000 ML IV SCH; +MELOXICAM 7.5 MG TAB PO PRN; +TRANEXAMIC ACID IN NACL,ISO-OS 1,000 MG in SALINE 1 100ML.BAG IVPB PRN; +VANCOMYCIN 1,000 MG in SODIUM CHLORIDE 0.9% 250 ML IVPB PRN
[2021-12-12] MEDS: LACTATED RINGERS 1,000 ML IV SCH ×2 (13:19→17:59)
[2021-12-12] MEDS ORDERED: MIDAZOLAM 2 MG/2 ML VIAL IV ONE (13:41)
[2021-12-12] MEDS ORDERED: GLYCOPYRROLATE 0.2 MG/ML 2 ML VIAL ONE (14:35)
[2021-12-12] MEDS ORDERED: TRANEXAMIC ACID IN NACL,ISO-OS 1,000 MG/100 ML BAG ONE (14:35)
[2021-12-12] MEDS ORDERED: DEXAMETHASONE SOD PHOSPHATE 4 MG/ML 1 ML VIAL ONE (14:35)
[2021-12-12] MEDS ORDERED: KETAMINE 10 MG/ML 20 ML VIAL ONE (14:35)
[2021-12-12] MEDS ORDERED: PROPOFOL 10 MG/ML 20 ML VIAL IV ONE (14:35)
[2021-12-12] MEDS ORDERED: MIDAZOLAM 2 MG/2 ML VIAL ONE (14:35)
[2021-12-12] MEDS ORDERED: ROPIVACAINE 5 MG/ML 30 ML VIAL ONE (14:35)
[2021-12-12] MEDS ORDERED: fentaNYL (PF) 50 MCG/ML 2 ML AMP ONE (14:35)
[2021-12-12] MEDS ORDERED: PHENYLEPHRINE-0.9% NACL SYG 1,000 MCG/10 ML SYRINGE ONE (14:35)
[2021-12-12] MEDS ORDERED: ceFAZolin 1,000 MG in SODIUM CHLORIDE 0.9% 1,000 ML IRRIGATION ONE (15:10)
[2021-12-12] MEDS ORDERED: BUPIVACAINE (PF) 0.5% 30 ML VIAL SQ ONE (15:16)
[2021-12-12] MEDS ORDERED: LACTATED RINGERS 1,000 ML IV ONE (15:56)
[2021-12-12] MEDS ORDERED: NALOXONE 0.4 MG/ML 1 ML VIAL IV PRN (16:25)
[2021-12-12] MEDS ORDERED: HYDROcodone/APAP 5-325MG 1 EACH TAB PO PRN (16:25)
[2021-12-12] MEDS ORDERED: HYDROmorphone 0.2 MG/1 ML SYRINGE IVP PRN (16:25)
[2021-12-12] MEDS ORDERED: ONDANSETRON 4 MG/2 ML VIAL IVP PRN (16:25)
[2021-12-12] MEDS ORDERED: HYDROmorphone 0.5 MG/0.5 ML SYRINGE IVP PRN (16:25)
--- NOTE | 2021-12-12 16:25 | P.OP ---
Date of Procedure: 12/12/21 Preoperative Diagnosis: Left hip osteoarthritis Postoperative Diagnosis: Left hip osteoarthritis Procedure(s) Performed: Direct anterior left total hip arthroplasty Implants: 1. Depuy Corail 125 standard collar size 11 press-fit femoral stem 2. Depuy pinnacle 52 mm press-fit acetabular shell 3. Depuy pinnacle neutral polyethylene acetabular liner 36 mm ID 52 mm OD 4. Biolox delta ceramic femoral head +1.5 36 mm Anesthesia: local, spinal Surgeon: Jessee Carl Technical Support Consultant #1: Mayo Garcia Estimated Blood Loss (ml): 125 Pathology: other (Femoral head) Condition: stable Disposition: PACU Indications for Procedure: 71-year-old patient seen with symptomatic left hip osteoarthritis. After treatment options were discussed, she elected to proceed with direct anterior left total hip arthroplasty. Operative Findings: See description of procedure Description of Procedure: The patient was taken to the operative suite. Patient underwent a spinal anesthetic by the department of anesthesia. Patient was then transferred to the [place] table. Patient was given preoperative IV antibiotics and TXA. Both lower extremities were placed in standard leg spars. The hip was then prepped and draped in the normal sterile orthopedic fashion. A standard anterior incision was made beginning 3 cm lateral and 1 cm distal to the ASIS extending 10 cm. Dissection was then carried down through the subcutaneous soft tissues down to the fascia overlying the tensor fascia fabi. An incision was now made through the fascia. Careful dissection was taken down exposing the tensor fascia fabi muscle. A Cobra retractor was now placed along the medial femoral neck and a second one along the lateral femoral neck. The venous circumflex vessels were now identified, cauterized and clipped. We identified the anterior hip capsule. An incision was made through the hip capsule along the lateral border. I performed a partial anterior capsulectomy. Retractors were now placed around the femoral neck itself. A femoral neck cut was now made with a sagittal saw. It was completed with an osteotome at the lateral neck area. The femoral head was now removed without difficulty. The extremity was now rotated to 60 of external rotation. It was locked in position. Residual labrum was now debrided out. Serial reaming was performed of the acetabulum while Sravan jurado sisbella holding an anterior retractor for exposure. Once we reached the appropriate size and a trial was position and fit nicely. The appropriate size was now chosen opened and made available. It was introduced into the acetabulum without difficulty. The C-arm/fluoroscopy was now brought into the operative field. We made sure we had a true AP pelvic view. We now under direct C-arm/fluoroscopy introduced into the acetabular component with appropriate version and inclination. I held the cup in appropriate position well Sravan GIFFORD used a mallet to seat the acetabular component. I noted the component now to be well seated and stable. Acetabular cup introduce her was removed. The C-arm was pulled back. An appropriate liner was introduced and clicked into position. It was felt to be stable. At this point retractors were removed. The extremity was now placed into 140 external rotation with no traction. The leg was now dropped to the ground and adducted. Appropriate retractors were now positioned along the proximal femur. We also placed our femoral look into position. Additional capsular releasing was performed to gain access to the proximal femur. We now used a box osteotome. A canal finder was now utilized. Serial broaching was now performed with the assistance of Sravan GIFFORD tapping the broaches down with a mallet while held the broach in appropriate rotation and position. This was done until we reached the appropriate size with good overall rotational stability. Appropriate calcar planing was performed. A trial head/neck was placed into position. The hip was now reduced. The C- arm/fluoroscopy was brought back into the operative field. I obtained an AP pelvis which demonstrated adequate leg length alignment. The trial components appeared adequately sized and positioned. The C-arm/fluoroscopy was pulled back. Retractors were repositioned and the hip was dislocated. The leg was again taken down to the ground and adducted. Appropriate retractors were repositioned as well as the femoral hook. All trial components were removed. The femoral implant was opened along with the femoral head. The femoral implant was introduced on the appropriate handle into our pre-broached area. I held the component position well Sravan GIFFORD used a mallet to seat the femoral component. The femoral component was now noted to be well seated and stable.. The femoral head was introduced with good positioning and fixation noted. Retractors were now removed. The hip was now reduced. There appeared be good positioning of the hip confirmed on intraoperative fluoroscopy. Spot films were obtained to document this. A second gram of TXA was given. The deep and superficial soft tissues were infiltrated with local analgesic. Bipolar cautery had been utilized intermittently through the procedure for hemostasis. The wound was irrigated copiously with pulse lavage mechanical irrigation. The fascia was repaired with Vicryl suture. The subcutaneous soft tissues were repaired in layers with Vicryl suture. The skin was approximated with pernio/Dermabond. Sterile dressings were applied. Patient was then awakened, transferred to a bed and taken to recovery in stable condition. Sravan GIFFORD assisted with the complex procedure.
--- NOTE | 2021-12-12 16:58 | P.ANPRN ---
Procedure Note - Anesthesia - Nerve Block Performed Left Erector Spinae Single Time Out Performed: Yes Date of Procedure: 12/12/21 Procedure Start Time: 13:40 Procedure Stop Time: 13:52 Location of Patient: PreOp Indication: Acute Post-Operative Pain, Requested by Surgeon Sedation Type: Sedate with meaningful contact maintained Preparation: Sterile Prep, Sterile Dressing Position: Prone Catheter: None Needle Types: Facet Needle Gauge: 20 Ultrasound used to visualize needle placement: Yes Ultrasound used to observe medication spread: Yes Injectate: 0.5% Ropivacaine (see comment for volume) (30 ml + decadron 4 mg) Blood Aspirated: No Pain Paresthesia on Injection Noted: No Resistance on Injection: Normal Image Stored and Saved: Yes Events: Uneventful and Well Tolerated
[2021-12-12] MEDS: HYDROmorphone 0.5 MG/0.5 ML SYRINGE IVP PRN (18:34)
--- NOTE | 2021-12-12 19:25 | XR ---
EXAMINATION TYPE: XR Hip Limited LT DATE OF EXAM: 12/12/2021 4:24 PM INDICATION: Patient age:Female; 71 years old; Reason for study: L hip replacement; PHH. Intraoperative fluoroscopic services were provided for internal fixation of a left hip. Total fluoros copy time is 1.7 seconds with a total of 1 submitted images to PACS. Please see the operative note fo r further details.
--- NOTE | 2021-12-12 20:59 | P.CONS ---
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 Yancey with HTN, GERD, and Pre-dm who presented for elective MJ. She underwent the procedure without any postoperative complications. Patient seen and examined at bedside. She reports that she has had been having pain for quite some time and hasn't bedbound has been at home which she cares for and now her son was available to help care for her will she recovers. She reports that over the last several days she has had increasing nasal congestion and a cough without fever or shortness of breath. Pertinent positives and negatives as discussed in HPI, a complete review of systems was performed and all other systems are negative. General: non toxic, no distress, appears at stated age Derm: warm, dry Head: atraumatic, normocephalic, symmetric Eyes: EOMI, no lid lag, anicteric sclera, pupils equal round reactive to light ENT: Nose and ears atraumatic, no thrush, no pharyngeal erythema, + PND Neck: No thyromegaly, no cervical lymphadenopathy, trachea midline, supple Mouth: no lip lesion, mucus membranes moist Cardiovascular: S1S2 reg, no murmur, positive posterior tibial pulse bilateral, no edema, capillary refill less than 2 seconds Lungs: clear to ascultation bilateral, no ronchi, no rales, no wheeze, no accessory muscle use Abdominal: soft, nontender to palpation, no guarding, no appreciable organomegaly, normal bowel sounds Ext: no gross muscle atrophy, muscle strength muscle strength 5 out of 5 in upper extremities, no contractures Neuro: CN II-XI grossly intact, light touch intact all 4 extremities, finger to nose within normal limits, Psych: Alert, oriented, appropriate affect Assessment/plan: Patient is a 71-year-old female here for elective total hip arthroplasty Hypertension, accelerated -Likely secondary to not taking medications and fluid just a large -Resume home medications -Follow blood pressures Sinusitis -Flonase -Check Covid testing GERD -PPI Dyslipidemia -Lipitor OVIDIO - Non CPAP at home - O2 at night Pre-DM - outpatient follow-up - last A1C aug 2021 6.8 - follow BS Thank you for allowing us to participate in the care of this pleasant patient. Do not hesitate to contact us with questions. Someone can be reached from the [facility] [place] [facility] all hours of the day at [phone] or via [employer]. Past Medical History Past Medical History: GERD/Reflux, Hyperlipidemia, Hypertension, Osteoarthritis (OA), Sleep Apnea/CPAP/BIPAP Additional Past Medical History / Comment(s): "PRE DIABETIC" WATCHING DIET , DOES NOT USE CPAP MACHINE, History of Any Multi-Drug Resistant Organisms: None Reported Past Surgical History: Cholecystectomy, Hysterectomy, Joint Replacement, Orthopedic Surgery Additional Past Surgical History / Comment(s): total hysterectomy, cholecystectomy, bilateral cataract surgery,RIGHT KNEE ACL reconstruction, RIGHT KNEE arthroscopy 3, right knee total knee replacement with subsequent revision, spacer put in right knee, left knee meniscus repair, left shoulder surgery. RIGHT SHOULDER SURGERY, Past Anesthesia/Blood Transfusion Reactions: Previous Problems w/ Anesthesia Additional Past Anesthesia/Blood Transfusion Reaction / Comm: very shallow breathing- respiration only 3 per patient received naracan with knee surgery in 2019 at [place]. elevated blood pressure in recovery room with shoulder surgery Past Psychological History: No Psychological Hx Reported Additional Psychological History / Comment(s): cymbalta for nerve pain Smoking Status: Never smoker Past Alcohol Use History: Rare Additional Past Alcohol Use History / Comment(s): STARTED SMOKING AT 19 QUIT SMOKING IN 2002 SMOKED 2 CIG A WEEK Past Drug Use History: None Reported - Past Family History Mother Family Medical History: Cancer Additional Family Medical History / Comment(s): BREAST CANCER Father Family Medical History: Cancer Additional Family Medical History / Comment(s): THROAT CANCER Medications and Allergies Home Medications Medication Instructions Recorded Confirmed Type Aspirin [Adult Low Dose Aspirin EC] 81 mg PO HS 04/27/20 12/09/21 History Atorvastatin [Lipitor] 40 mg PO DAILY 04/27/20 12/12/21 History Cholecalciferol [Vitamin D3 (25 25 mcg PO DAILY 04/27/20 12/09/21 History Mcg = 1000 Iu)] DULoxetine HCL [Cymbalta] 30 mg PO BID 04/27/20 12/12/21 History Losartan [Cozaar] 50 mg PO BID 04/27/20 12/12/21 History Metoprolol Tartrate [Lopressor] 100 mg PO BID 04/27/20 12/12/21 History Multivitamins, Thera [Multivitamin 1 tab PO DAILY 04/27/20 12/09/21 History (formulary)] Omeprazole 20 mg PO BID 04/27/20 12/12/21 History Oxybutynin Chloride [Oxybutynin 15 mg PO HS 04/27/20 12/12/21 History Chloride ER] Ubidecarenone [Co Q-10] 100 mg PO DAILY 04/27/20 12/09/21 History traMADol HCL 25 mg PO QAM 04/27/20 12/12/21 History traMADol HCl [Ultram] 50 mg PO Q6H PRN #28 tab 05/18/21 12/12/21 Rx Allergies Allergy/AdvReac Type Severity Reaction Status Date / Time amoxicillin Allergy GI bleed Verified 12/12/21 13:10 erythromycin base Allergy Rash/Hives Verified 12/12/21 13:10 Physical Exam Osteopathic Statement: *. No significant issues noted on an osteopathic structural exam other than those noted in the History and Physical/Consult. Vitals: Vital Signs Temp Pulse Resp BP Pulse Ox 12/12/21 18:40 97.7 F 87 17 162/89 98 12/12/21 18:29 98.3 F 62 17 152/89 100 12/12/21 18:13 98.7 F 66 17 156/93 96 12/12/21 17:52 97.7 F 55 L 18 156/85 99 12/12/21 17:25 62 16 151/77 99 12/12/21 17:15 65 16 148/77 96 12/12/21 17:01 68 16 148/75 96 12/12/21 16:47 97.1 F L 61 14 105/53 100 12/12/21 13:56 63 16 152/67 99 12/12/21 13:12 97.3 F L 69 16 171/75 95 Intake and Output 12/12/21 12/12/21 12/12/21 06:59 14:59 22:59 Intake Total 1250 1100 Output Total 125 Balance 1250 975 Intake: IV 1250 1100 Output: Estimated Blood Loss 125 Other: # Voids 1 Weight 68 kg 68 kg Results CBC & Chem 7: 12/02/21 10:36 12/02/21 10:36
--- NOTE | 2021-12-12 21:34 | FL ---
Intraoperative fluoroscopic services were provided for internal fixation of a left hip. Total fluoros copy time is 1.7 seconds with a total of 1 submitted images to PACS. Please see the operative note fo r further details.
[2021-12-12] MEDS: SENNOSIDES-DOCUSATE SODIUM 1 EACH TAB PO SCH (21:43)
[2021-12-12] MEDS: DULoxetine HCL 30 MG CAPSULE.DR PO SCH (21:43)
[2021-12-12] MEDS: FLUTICASONE 50MCG/SPRAY NASAL 16GM EA NOSTRIL SCH (21:43)
[2021-12-12] MEDS: OXYBUTYNIN 15 MG TAB.ER.24 PO SCH (21:43)
[2021-12-12] MEDS: PANTOPRAZOLE 40 MG TABLET PO SCH (21:43)
[2021-12-12] MEDS: LOSARTAN 50 MG TAB PO SCH (21:43)
[2021-12-12] MEDS: METOPROLOL TARTRATE 50 MG TAB PO SCH (21:43)
[2021-12-12 21:47] LABS: Glucose,Whole Blood 189 mg/dL (75-99)
[2021-12-13] MEDS: LACTATED RINGERS 1,000 ML IV SCH ×2 (00:09→03:14)
[2021-12-13] MEDS: HYDROcodone/APAP 5-325MG 1 EACH TAB PO PRN (06:45)
[2021-12-13] MEDS: ENOXAPARIN 40 MG/0.4 ML SYRINGE SQ SCH (07:29)
[2021-12-13] MEDS: METOPROLOL TARTRATE 50 MG TAB PO SCH ×2 (07:29→22:25)
[2021-12-13] MEDS: DULoxetine HCL 30 MG CAPSULE.DR PO SCH ×2 (07:29→22:24)
[2021-12-13] MEDS: LOSARTAN 50 MG TAB PO SCH (07:30)
[2021-12-13] MEDS: ATORVASTATIN 40 MG TAB PO SCH (07:30)
[2021-12-13] MEDS: MULTIVITAMINS, THERA 1 EACH TAB PO SCH (07:30)
[2021-12-13] MEDS: FAMOTIDINE 20 MG TAB PO SCH (07:30)
[2021-12-13] MEDS: HYDROmorphone 0.5 MG/0.5 ML SYRINGE IVP PRN ×2 (07:35→11:56)
[2021-12-13 07:37] LABS: Glucose,Whole Blood 134 mg/dL (75-99)
[2021-12-13] MEDS: FLUTICASONE 50MCG/SPRAY NASAL 16GM EA NOSTRIL SCH (07:42)
[2021-12-13 09:13] LABS: Basophils # (A) 0.02 X 10*3/uL (0.00-0.10); Basophils % (A) 0.2 %; Eosinophils # (A) 0.01 X 10*3/uL (0.04-0.35); Eosinophils % (A) 0.1 %; HCT 34.7 % (37.2-46.3); HGB 10.8 g/dL (12.0-15.0); Immature Grans, Automated 0.4 %; Lymphocytes # (A) 0.96 X 10*3/uL (0.90-5.00); Lymphocytes % (A) 9.5 %; MCH 29.3 pg (27.0-32.0); MCHC 31.1 g/dL (32.0-37.0); MCV 94.3 fL (80.0-97.0); Monocytes # (A) 0.82 X 10*3/uL (0.20-1.00); Monocytes % (A) 8.1 %; NRBC Per 100 WBC 0 /100 WBCS (0.0-0.0); Neutrophils # (A) 8.26 X 10*3/uL (1.80-7.70); Neutrophils % (A) 81.7 %; Platelet Count 253 X 10*3/uL (140-440); RBC 3.68 X 10*6/uL (4.10-5.20); RDW 12.7 % (11.5-14.5); WBC 10.11 X 10*3/uL (4.50-10.00)
--- NOTE | 2021-12-13 10:20 | P.PN ---
Subjective Progress Note Date: 12/13/21 Principal diagnosis: Status post direct anterior left total hip arthroplasty Patient was evaluated today at bedside, she is resting in her hospital bed. Patient states that she is having some generalized discomfort with the left lower extremity, she notices this mainly with ambulation. She did have to utilize IV narcotics to help with pain after receiving oral medication prior. She denies any headaches, lightheadedness, chest pain, shortness of breath, nausea or vomiting. Objective - Vital Signs Vital signs: Vital Signs Temp 97.6 F 12/13/21 07:56 Pulse 64 12/13/21 07:56 Resp 19 12/13/21 07:56 BP 127/76 12/13/21 07:56 Pulse Ox 97 12/13/21 07:56 Intake & Output 12/12/21 12/13/21 12/13/21 18:59 06:59 18:59 Intake Total 2350 Output Total 125 Balance 2225 Weight 68 kg Intake: IV 2350 Output: Estimated Blood Loss 125 Other: Voiding Method Toilet Diaper # Voids 1 2 - Exam Left lower extremity: Operative dressing is in good position and condition, there is no obvious drainage. Minimal soft tissue swelling present in the anterior thigh. Mild tenderness with palpation to the anterior thigh, compartments remain soft. Calf is soft, no tenderness with palpation. Plantar flexion, dorsiflexion, EHL, FHL are intact. Sensory exam to light touch is intact at extremity, dorsalis pedis pulses 2+ - Labs CBC & Chem 7: 12/13/21 04:02 12/02/21 10:36 Labs: Abnormal Lab Results - Last 24 Hours (Table) 12/12/21 12/13/21 12/13/21 Range/Units 21:45 04:02 07:36 WBC 10.11 H (4.50-10.00) X 10*3/uL RBC 3.68 L (4.10-5.20) X 10*6/uL Hgb 10.8 L (12.0-15.0) g/dL Hct 34.7 L (37.2-46.3) % MCHC 31.1 L (32.0-37.0) g/dL Neutrophils # 8.26 H (1.80-7.70) X 10*3/uL Eosinophils # 0.01 L (0.04-0.35) X 10*3/uL POC Glucose (mg/dL) 189 H 134 H (75-99) mg/dL Assessment and Plan Assessment: Postoperative day #1 status post direct anterior left total hip arthroplasty Acute blood loss anemia, expected surgical outcome Plan: Pain control, will adjust oral medication. Try to avoid IV pain medication and was in severe pain DVT prophylaxis, continue with Lovenox during inpatient stay. We'll adjust aspirin 81 mg 2 twice a day for 30 days for discharge Wound care instructions were discussed, this to include icing and elevating while showering instructions Weight-bear as tolerated, recommend use of walker at all times Continue work with physical therapy Ferrous sulfate 325 mg twice a day will be started for anemia Medical recommendations Discharge planning: Discussed with both patient and nurse today bedside if patient does progress throughout the afternoon week discharged later today. The patient's pain is under control, we'll plan for discharge on 12/14/2021. Time with Patient: Less than 30
[2021-12-13 11:09] LABS: Glucose,Whole Blood 108 mg/dL (75-99)
[2021-12-13] MEDS: HYDROcodone/APAP 7.5-325MG 1 EACH TAB PO PRN ×2 (15:05→22:26)
[2021-12-13 17:03] LABS: Glucose,Whole Blood 376 mg/dL (75-99)
[2021-12-13 17:19] LABS: Glucose,Whole Blood 116 mg/dL (75-99)
--- NOTE | 2021-12-13 17:30 | P.PN ---
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 Denies any excessive pain this afternoon. Blood pressure has been stable. Objective - Vital Signs Vital signs: Vital Signs Temp 98.1 F 12/13/21 14:00 Pulse 65 12/13/21 14:00 Resp 19 12/13/21 14:00 BP 99/61 12/13/21 14:00 Pulse Ox 100 12/13/21 14:00 Intake & Output 12/12/21 12/13/21 12/13/21 18:59 06:59 18:59 Intake Total 2350 Output Total 125 Balance 2225 Weight 68 kg Intake: IV 2350 Output: Estimated Blood Loss 125 Other: Voiding Method Toilet Diaper # Voids 1 2 - Exam General: non toxic, no distress, appears at stated age Derm: warm, dry Head: atraumatic, normocephalic, symmetric Eyes: EOMI, no lid lag, anicteric sclera, pupils equal round reactive to light ENT: Nose and ears atraumatic, no thrush, no pharyngeal erythema, + PND Neck: No thyromegaly, no cervical lymphadenopathy, trachea midline, supple Mouth: no lip lesion, mucus membranes moist Cardiovascular: S1S2 reg, no murmur, positive posterior tibial pulse bilateral, no edema, capillary refill less than 2 seconds Lungs: clear to ascultation bilateral, no ronchi, no rales, no wheeze, no accessory muscle use Abdominal: soft, nontender to palpation, no guarding, no appreciable organomegaly, normal bowel sounds Ext: no gross muscle atrophy, muscle strength muscle strength 5 out of 5 in upper extremities, no contractures Neuro: CN II-XI grossly intact, light touch intact all 4 extremities, finger to nose within normal limits, Psych: Alert, oriented, appropriate affect - Labs CBC & Chem 7: 12/13/21 04:02 12/02/21 10:36 Labs: Abnormal Lab Results - Last 24 Hours (Table) 12/12/21 12/13/21 12/13/21 Range/Units 21:45 04:02 07:36 WBC 10.11 H (4.50-10.00) X 10*3/uL RBC 3.68 L (4.10-5.20) X 10*6/uL Hgb 10.8 L (12.0-15.0) g/dL Hct 34.7 L (37.2-46.3) % MCHC 31.1 L (32.0-37.0) g/dL Neutrophils # 8.26 H (1.80-7.70) X 10*3/uL Eosinophils # 0.01 L (0.04-0.35) X 10*3/uL POC Glucose (mg/dL) 189 H 134 H (75-99) mg/dL 12/13/21 12/13/21 12/13/21 Range/Units 11:08 17:01 17:18 WBC (4.50-10.00) X 10*3/uL RBC (4.10-5.20) X 10*6/uL Hgb (12.0-15.0) g/dL Hct (37.2-46.3) % MCHC (32.0-37.0) g/dL Neutrophils # (1.80-7.70) X 10*3/uL Eosinophils # (0.04-0.35) X 10*3/uL POC Glucose (mg/dL) 108 H 376 H 116 H (75-99) mg/dL Assessment and Plan Plan: Patient is a 71-year-old female here for elective total hip arthroplasty Hypertension, accelerated -Likely secondary to not taking medications and fluid just a large -Resume home medications Monitor blood pressures very closely as she can get on the softer side post operatively and I would prefer if she is taking losartan once a day. Monitor heart rate closely and adjust metoprolol as well. Sinusitis -Flonase -Check Covid testing GERD -PPI Dyslipidemia -Lipitor OVIDIO - Non CPAP at home - O2 at night Pre-DM - outpatient follow-up - last A1C aug 2021 6.8 - follow BS
[2021-12-13] MEDS: FERROUS SULFATE 325 MG TAB PO SCH (18:05)
[2021-12-13] MEDS: PANTOPRAZOLE 40 MG TABLET PO SCH (22:24)
[2021-12-13] MEDS: SENNOSIDES-DOCUSATE SODIUM 1 EACH TAB PO SCH (22:25)
[2021-12-13] MEDS: OXYBUTYNIN 15 MG TAB.ER.24 PO SCH (22:25)
[2021-12-14] MEDS: HYDROmorphone 0.5 MG/0.5 ML SYRINGE IVP PRN (01:52)
[2021-12-14] MEDS: LACTATED RINGERS 1,000 ML IV SCH (05:52)
[2021-12-14] MEDS: ENOXAPARIN 40 MG/0.4 ML SYRINGE SQ SCH (07:47)
[2021-12-14] MEDS: FAMOTIDINE 20 MG TAB PO SCH (07:48)
[2021-12-14] MEDS: HYDROcodone/APAP 5-325MG 1 EACH TAB PO PRN (07:48)
[2021-12-14] MEDS: METOPROLOL TARTRATE 50 MG TAB PO SCH ×2 (07:48→20:25)
[2021-12-14] MEDS: ATORVASTATIN 40 MG TAB PO SCH (07:49)
[2021-12-14] MEDS: LOSARTAN 50 MG TAB PO SCH (07:49)
[2021-12-14] MEDS: DULoxetine HCL 30 MG CAPSULE.DR PO SCH ×2 (07:49→20:25)
[2021-12-14] MEDS: FERROUS SULFATE 325 MG TAB PO SCH ×2 (07:49→17:58)
[2021-12-14] MEDS: MULTIVITAMINS, THERA 1 EACH TAB PO SCH (07:49)
[2021-12-14] MEDS: FLUTICASONE 50MCG/SPRAY NASAL 16GM EA NOSTRIL SCH (07:50)
--- NOTE | 2021-12-14 12:01 | P.PN ---
Subjective Progress Note Date: 12/14/21 Principal diagnosis: Status post direct anterior left total hip arthroplasty Patient was evaluated today at bedside, she is resting in her hospital bed. Patients daughter is present at bedside today. She did have a very difficult time with stairs today with PT. She has chronic issues with her right knee and that seems to be contributing to her difficulty with ambulation. Family is worried about her going home, she does take care of her . She denies any headaches, lightheadedness, chest pain, shortness of breath, nausea or vomiting. Objective - Vital Signs Vital signs: Vital Signs Temp 97.5 F L 12/14/21 08:00 Pulse 86 12/14/21 08:00 Resp 18 12/14/21 08:00 BP 137/80 12/14/21 08:00 Pulse Ox 98 12/14/21 08:00 Intake & Output 12/13/21 12/14/21 12/14/21 18:59 06:59 18:59 Other: # Voids 5 - Exam Left lower extremity: Operative dressing is in good position and condition, there is no obvious drainage. Minimal soft tissue swelling present in the anterior thigh. Mild tenderness with palpation to the anterior thigh, compartments remain soft. Calf is soft, no tenderness with palpation. Plantar flexion, dorsiflexion, EHL, FHL are intact. Sensory exam to light touch is intact at extremity, dorsalis pedis pulses 2+ - Labs CBC & Chem 7: 12/13/21 04:02 12/02/21 10:36 Labs: Abnormal Lab Results - Last 24 Hours (Table) 12/13/21 12/13/21 Range/Units 17:01 17:18 POC Glucose (mg/dL) 376 H 116 H (75-99) mg/dL Assessment and Plan Assessment: Postoperative day #2 status post direct anterior left total hip arthroplasty Acute blood loss anemia, expected surgical outcome Plan: Pain control, will adjust oral medication. Try to avoid IV pain medication and was in severe pain DVT prophylaxis, continue with Lovenox during inpatient stay. We'll adjust aspirin 81 mg 2 twice a day for 30 days for discharge Wound care instructions were discussed, this to include icing and elevating while showering instructions Weight-bear as tolerated, recommend use of walker at all times Continue work with physical therapy Ferrous sulfate 325 mg twice a day will be started for anemia Medical recommendations Discharge planning: Did discuss with nursing to speak with case management about rehab authorization. Patient will stay in hospital at least 1 additional night, we will recheck symptoms on 12/15/2021. Time with Patient: Less than 30
[2021-12-14] MEDS: HYDROcodone/APAP 7.5-325MG 1 EACH TAB PO PRN ×2 (12:58→20:26)
--- NOTE | 2021-12-14 13:31 | P.PN ---
Progress Note - Text Progress Note Date: 12/14/21 Assessment: Left hip osteoarthriits post-op day # 2 s/p left total hip arthroplasty Plan: Patient does need to stay at least one more night to get pain under better control. Patient did have difficulty using stairs with therapy. We are recommending discharge to [facility]. We plan to discharge patient to [facility] tomorrow at the earliest. New placement order has been placed as inpatient.
--- NOTE | 2021-12-14 16:40 | P.PN ---
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 She underwent the procedure without any postoperative complications. Patient seen and examined at bedside. She reports that she has had been having pain for quite some time and hasn't bedbound has been at home which she cares fo r and now her son was available to help care for her will she recovers. She reports that over the last several days she has had increasing nasal congestion and a cough without fever or shortness of breath. Interval history Patient was examined at the bedside. She denies any chest pain or shortness of breath. She is still complaining of hip pain. General: non toxic, no distress, appears at stated age Derm: warm, dry Head: atraumatic, normocephalic, symmetric Eyes: EOMI, no lid lag, anicteric sclera, pupils equal round reactive to light ENT: Nose and ears atraumatic, no thrush, no pharyngeal erythema, + PND Neck: No thyromegaly, no cervical lymphadenopathy, trachea midline, supple Mouth: no lip lesion, mucus membranes moist Cardiovascular: S1S2 reg, no murmur, positive posterior tibial pulse bilateral, no edema, capillary refill less than 2 seconds Lungs: clear to ascultation bilateral, no ronchi, no rales, no wheeze, no accessory muscle use Abdominal: soft, nontender to palpation, no guarding, no appreciable organomegaly, normal bowel sounds Ext: no gross muscle atrophy, muscle strength muscle strength 5 out of 5 in upper extremities, no contractures Neuro: CN II-XI grossly intact, light touch intact all 4 extremities, finger to nose within normal limits, Psych: Alert, oriented, appropriate affect Assessment/plan: Patient is a 71-year-old female here for elective total hip arthroplasty Hypertension, accelerated -Likely secondary to not taking medications and fluid just a large -Resume home medications -Follow blood pressures Sinusitis -Flonase -Negative Covid GERD -PPI Dyslipidemia -Lipitor OVIDIO - Non CPAP at home - O2 at night Pre-DM - outpatient follow-up - last A1C Aug 2021 6.8 - follow BS Objective - Vital Signs Vital signs: Vital Signs Temp 98.5 F 12/14/21 13:57 Pulse 76 12/14/21 13:57 Resp 16 12/14/21 13:57 BP 112/67 12/14/21 13:57 Pulse Ox 96 12/14/21 13:57 Intake & Output 12/13/21 12/14/21 12/14/21 18:59 06:59 18:59 Other: # Voids 5 1 - Labs CBC & Chem 7: 12/13/21 04:02 12/02/21 10:36 Labs: Abnormal Lab Results - Last 24 Hours (Table) 12/13/21 12/13/21 Range/Units 17:01 17:18 POC Glucose (mg/dL) 376 H 116 H (75-99) mg/dL
[2021-12-14] MEDS: OXYBUTYNIN 15 MG TAB.ER.24 PO SCH (20:25)
[2021-12-14] MEDS: PANTOPRAZOLE 40 MG TABLET PO SCH (20:25)
[2021-12-14] MEDS: SENNOSIDES-DOCUSATE SODIUM 1 EACH TAB PO SCH (20:26)
[2021-12-14 21:26] LABS: Glucose,Whole Blood 117 mg/dL (75-99)
[2021-12-15 02:52] VITALS: TEMP 98.5
[2021-12-15] MEDS: LACTATED RINGERS 1,000 ML IV SCH (05:20)
[2021-12-15] MEDS: HYDROcodone/APAP 7.5-325MG 1 EACH TAB PO PRN (06:09)
[2021-12-15 06:55] LABS: Glucose,Whole Blood 127 mg/dL (75-99)
[2021-12-15] MEDS: FERROUS SULFATE 325 MG TAB PO SCH (08:22)
[2021-12-15] MEDS: DULoxetine HCL 30 MG CAPSULE.DR PO SCH (08:22)
[2021-12-15] MEDS: LOSARTAN 50 MG TAB PO SCH (08:22)
[2021-12-15] MEDS: MULTIVITAMINS, THERA 1 EACH TAB PO SCH (08:22)
[2021-12-15] MEDS: ATORVASTATIN 40 MG TAB PO SCH (08:22)
[2021-12-15] MEDS: FAMOTIDINE 20 MG TAB PO SCH (08:22)
[2021-12-15] MEDS: METOPROLOL TARTRATE 50 MG TAB PO SCH (08:22)
[2021-12-15] MEDS: ENOXAPARIN 40 MG/0.4 ML SYRINGE SQ SCH (08:22)
[2021-12-15] MEDS: FLUTICASONE 50MCG/SPRAY NASAL 16GM EA NOSTRIL SCH (08:23)
[2021-12-15 08:47] VITALS: BP 123/72; PULSE 84; RESP 17
[2021-12-15 09:36] LABS: Basophils # (A) 0.05 X 10*3/uL (0.00-0.10); Basophils % (A) 0.7 %; Eosinophils # (A) 0.16 X 10*3/uL (0.04-0.35); Eosinophils % (A) 2.1 %; HGB 9.6 g/dL (12.0-15.0); Immature Grans, Automated 0.9 %; Lymphocytes # (A) 2.02 X 10*3/uL (0.90-5.00); Lymphocytes % (A) 26.3 %; MCH 28.8 pg (27.0-32.0); MCV 93.1 fL (80.0-97.0); Mean Platelet Volume 9.8 fL (9.5-12.2); Monocytes # (A) 0.77 X 10*3/uL (0.20-1.00); NRBC Per 100 WBC 0 /100 WBCS (0.0-0.0); Neutrophils # (A) 4.62 X 10*3/uL (1.80-7.70); Platelet Count 236 X 10*3/uL (140-440); RBC 3.33 X 10*6/uL (4.10-5.20); RDW 13.2 % (11.5-14.5); WBC 7.69 X 10*3/uL (4.50-10.00)
--- NOTE | 2021-12-15 10:41 | P.PN ---
Subjective Progress Note Date: 12/15/21 Principal diagnosis: Status post direct anterior left total hip arthroplasty Patient was evaluated today at bedside, she is resting in her hospital bed. Patient is doing a lot better today. Her pain is a lot better controlled today. She has ambulated better with therapy. She is hoping to be discharged to home versus subacute rehab. She denies any headaches, lightheadedness, chest pain, shortness of breath, nausea or vomiting. Objective - Vital Signs Vital signs: Vital Signs Temp 98.5 F 12/15/21 08:14 Pulse 84 12/15/21 08:14 Resp 17 12/15/21 08:14 BP 123/72 12/15/21 08:14 Pulse Ox 92 L 12/15/21 08:14 Intake & Output 12/14/21 12/15/21 12/15/21 18:59 06:59 18:59 Other: Voiding Method Toilet Diaper # Voids 1 2 - Exam Left lower extremity: Operative dressing is in good position and condition, there is no obvious drainage. Minimal soft tissue swelling present in the anterior thigh. Mild tenderness with palpation to the anterior thigh, compartments remain soft. Calf is soft, no tenderness with palpation. Plantar flexion, dorsiflexion, EHL, FHL are intact. Sensory exam to light touch is intact at extremity, dorsalis pedis pulses 2+ - Labs CBC & Chem 7: 12/15/21 06:27 12/02/21 10:36 Labs: Abnormal Lab Results - Last 24 Hours (Table) 12/14/21 12/15/21 12/15/21 Range/Units 21:23 06:27 06:53 RBC 3.33 L (4.10-5.20) X 10*6/uL Hgb 9.6 L (12.0-15.0) g/dL Hct 31.0 L (37.2-46.3) % MCHC 31.0 L (32.0-37.0) g/dL Immature Gran # 0.07 H (0.00-0.04) X 10*3/uL POC Glucose (mg/dL) 117 H 127 H (75-99) mg/dL Assessment and Plan Assessment: Postoperative day #3 status post direct anterior left total hip arthroplasty Acute blood loss anemia, expected surgical outcome Plan: Pain control, planning for discharge on [place] 7.5 mg/325 mg DVT prophylaxis, aspirin 81 mg twice a day for 30 days Wound care instructions were discussed, this to include icing and elevating and showering instructions Weight-bear as tolerated, recommend use of walker at all times Continue work with physical therapy Ferrous sulfate 325 mg twice a day will be started for anemia Medical recommendations Discharge planning: Patient will be discharged home today Time with Patient: Less than 30
--- NOTE | 2021-12-15 10:46 | P.DS ---
Providers Date of admission: 12/14/21 14:36 Expected date of discharge: 12/15/21 Attending physician: Jessee Carl Consults: 12/12/21 16:25 Consult Physician Routine Consulting Provider: Trista Vela Consult Reason/Comments: Medical management Do you want consulting provider notified?: Yes Primary care physician: [facility] Hospital Course: Date of admission: 12/12/2021 Date of discharge: 12/15/2021 Admission diagnosis: Status post direct anterior left total hip arthroplasty Discharge diagnosis: Same Attending physician: Dr. Carl Surgical procedures: Direct anterior left total hip arthroplasty Brief history: Patient is a 71-year-old female with a history of progressive primary left hip osteoarthritis. At this point patient has failed conservative treatment measures and has opted to proceed with a elective direct anterior left total hip arthroplasty. Hospital course: Details of patient's surgery can be found in operative report. Patient tolerated the procedure well and was subsequently transported to orthopedic floor. Patient's orthopeidc and medical care was provided daily. Patient had daily laboratory tests performed for evaluation of overall blood counts. Patient had daily physical therapy to include strengthening range of motion as well as education with walker ambulation. Patient was treated with Lovenox for their postoperative DVT prophylaxis during their inpatient stay. Patient was noted to have a relatively uneventful postoperative course. Patient reported satisfactory pain control with oral pain medications by postoperative day 1. Patient showed satisfactory progress with physical therapy. Patient moved steadily through the program and had no difficulty meeting the goals by postoperative day 3. Given patient's otherwise satisfactory course and having met physical therapy goals, plan is to discharge patient home on postoperative day 3. Discharge condition/disposition: Patient will be discharged home in stable condition. Discharge medications: Instructions are given on resumption of patient's normal daily medications per primary care recommendation, in addition patient will be prescribed [place] 7.5 mg/325 mg, Colace 100 mg, ferrous sulfate 325 mg. Discharge instructions: 1. Wound care and infection precautions, keep incision dry and covered while showering, no lotions, creams, moisturizers. No soaking, tubs, pools, hottubs. Do not scrub over the incision. 2. Weight-bear as tolerated with walker / cane until follow-up. 3. Ice and elevate when necessary. Do not exceed 20 minutes per hour with ice pack. 4. Utilize compression sleeve until seen at first follow up appointment. 5. Visiting nursing care. 6. Home physical therapy including home CPM. 7. Pain meds and anticoagulants per prescription. 8. Pain medication has potential to cause constipation. Increase oral fluid and fiber intake. Contact primary care provider if you have not had a bowel movement within 48 hours after discharge 9. No anti-inflammatory medication until discussed at first post operative visit, this including Motrin, Aleve, Mobic, Diclofenac. 10. Follow up in office at 2 weeks postop with Sravan Garcia PA-C/Agustin Mcintyre 11. Follow up with your primary care doctor 7-10 days after discharge. 12. Contact [facility] with any questions, . Procedures: Direct anterior left total hip arthroplasty Patient Condition at Discharge: Good Plan - Discharge Summary Discharge Rx Participant: Yes New Discharge Prescriptions: New Aspirin [Adult Low Dose Aspirin EC] 81 mg PO BID #60 tab Ferrous Sulfate [Iron (65 MG Elemental)] 325 mg PO BID #60 tab HYDROcodone/APAP 7.5-325MG [[place] 7.5] 1 each PO Q6HR PRN #28 tab PRN Reason: Pain Docusate [Colace] 100 mg PO DAILY #30 capsule Discontinued traMADol HCl [Ultram] 50 mg PO Q6H PRN #28 tab PRN Reason: Pain No Action Ubidecarenone [Co Q-10] 100 mg PO DAILY Multivitamins, Thera [Multivitamin (formulary)] 1 tab PO DAILY Aspirin [Adult Low Dose Aspirin EC] 81 mg PO HS traMADol HCL 25 mg PO QAM Cholecalciferol [Vitamin D3 (25 Mcg = 1000 Iu)] 25 mcg PO DAILY Oxybutynin Chloride [Oxybutynin Chloride ER] 15 mg PO HS Omeprazole 20 mg PO BID Atorvastatin [Lipitor] 40 mg PO DAILY Metoprolol Tartrate [Lopressor] 100 mg PO BID Losartan [Cozaar] 50 mg PO BID DULoxetine HCL [Cymbalta] 30 mg PO BID Discharge Medication List Aspirin [Adult Low Dose Aspirin EC] 81 mg PO HS 04/27/20 [History] Atorvastatin [Lipitor] 40 mg PO DAILY 04/27/20 [History] Cholecalciferol [Vitamin D3 (25 Mcg = 1000 Iu)] 25 mcg PO DAILY 04/27/20 [History] DULoxetine HCL [Cymbalta] 30 mg PO BID 04/27/20 [History] Losartan [Cozaar] 50 mg PO BID 04/27/20 [History] Metoprolol Tartrate [Lopressor] 100 mg PO BID 04/27/20 [History] Multivitamins, Thera [Multivitamin (formulary)] 1 tab PO DAILY 04/27/20 [History] Omeprazole 20 mg PO BID 04/27/20 [History] Oxybutynin Chloride [Oxybutynin Chloride ER] 15 mg PO HS 04/27/20 [History] Ubidecarenone [Co Q-10] 100 mg PO DAILY 04/27/20 [History] traMADol HCL 25 mg PO QAM 04/27/20 [History] Aspirin [Adult Low Dose Aspirin EC] 81 mg PO BID #60 tab 12/13/21 [Rx] Docusate [Colace] 100 mg PO DAILY #30 capsule 12/15/21 [Rx] Ferrous Sulfate [Iron (65 MG Elemental)] 325 mg PO BID #60 tab 12/15/21 [Rx] HYDROcodone/APAP 7.5-325MG [[place] 7.5] 1 each PO Q6HR PRN #28 tab 12/15/21 [Rx] Follow up Appointment(s)/Referral(s): [facility], [NON-STAFF] - ([facility] will call you to schedule your in home physical therapy visits. ) Mayo Garcia PAC [PHYSICIAN ELECTRONIC EQUIPMENT SET UP OPERATOR] - 2 Weeks Patient Instructions/Handouts: Total Hip Replacement (DC) Activity/Diet/Wound Care/Special Instructions: Orthopedic Discharge Instructions: 1. Wound care and infection precautions, keep incision dry and covered while showering, no lotions, creams, moisturizers. No soaking, pools, hot tubs. Do not scrub over incision. 2. Weight-bear as tolerated with walker / cane until follow-up. 3. Ice and elevate when necessary. Do not exceed 20 minutes per hour with ice pack. 4. Utilize compression sleeve until seen at first follow up appointment. 5. Pain meds and anticoagulants per prescription. 6. Pain medication has potential to cause constipation. Increase oral fluid and fiber intake. Contact primary care provider if you have not had a bowel movement within 48 hours after discharge. 7. No anti-inflammatory medication until discussed at first post operative visit, this including Motrin, Aleve, Mobic, Diclofenac. 8. Follow up in office at 2 weeks postop with Sravan Garcia PA-C / Agustin Amin PA-C 9. Follow up with your primary care doctor 7-10 days after discharge. 10. Contact [facility] with any questions, . Keep incision clean, dry, intact. While showering, cover silver foam dressing with Saran wrap. Silver foam dressing and removed in 7 days, 12/19/2021 Medications: Discharge Disposition: HOME WITH HOME HEALTH SERVICES
[2021-12-15] MEDS ORDERED: HYDROmorphone 0.5 MG/0.5 ML SYRINGE IVP PRN (11:03)
--- NOTE | 2021-12-15 11:16 | P.PN ---
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 She underwent the procedure without any postoperative complications. Patient seen and examined at bedside. She reports that she has had been having pain for quite some time and hasn't bedbound has been at home which she cares for and now her son was available to help care for her will she recovers. She reports that over the last several days she has had increasing nasal congestion and a cough without fever or shortness of breath. Interval history Patient was examined at the bedside. She denies any chest pain or shortness of breath. No acute changes overnight. She is being discharged home today General: non toxic, no distress, appears at stated age Derm: warm, dry Head: atraumatic, normocephalic, symmetric Eyes: EOMI, no lid lag, anicteric sclera, pupils equal round reactive to light ENT: Nose and ears atraumatic, no thrush, no pharyngeal erythema, + PND Neck: No thyromegaly, no cervical lymphadenopathy, trachea midline, supple Mouth: no lip lesion, mucus membranes moist Cardiovascular: S1S2 reg, no murmur, positive posterior tibial pulse bilateral, no edema, capillary refill less than 2 seconds Lungs: clear to ascultation bilateral, no ronchi, no rales, no wheeze, no accessory muscle use Abdominal: soft, nontender to palpation, no guarding, no appreciable organomegaly, normal bowel sounds Ext: no gross muscle atrophy, muscle strength muscle strength 5 out of 5 in upper extremities, no contractures Neuro: CN II-XI grossly intact, light touch intact all 4 extremities, finger to nose within normal limits, Psych: Alert, oriented, appropriate affect Assessment/plan: Patient is a 71-year-old female here for elective total hip arthroplasty Hypertension -Controlled -Resume home medications -Follow blood pressures GERD -PPI Dyslipidemia -Lipitor OVIDIO - Non CPAP at home - O2 at night Pre-DM - outpatient follow-up - last A1C Aug 2021 6.8 - follow BS Objective - Vital Signs Vital signs: Vital Signs Temp 98.5 F 12/15/21 08:14 Pulse 84 12/15/21 08:14 Resp 17 12/15/21 08:14 BP 123/72 12/15/21 08:14 Pulse Ox 92 L 12/15/21 08:14 Intake & Output 12/14/21 12/15/21 12/15/21 18:59 06:59 18:59 Other: Voiding Method Toilet Diaper # Voids 1 2 - Labs CBC & Chem 7: 12/15/21 06:27 12/02/21 10:36 Labs: Abnormal Lab Results - Last 24 Hours (Table) 12/14/21 12/15/21 12/15/21 Range/Units 21:23 06:27 06:53 RBC 3.33 L (4.10-5.20) X 10*6/uL Hgb 9.6 L (12.0-15.0) g/dL Hct 31.0 L (37.2-46.3) % MCHC 31.0 L (32.0-37.0) g/dL Immature Gran # 0.07 H (0.00-0.04) X 10*3/uL POC Glucose (mg/dL) 117 H 127 H (75-99) mg/dL
== END 2021-12-15 11:20 | disposition home health service (06) | DRG 470 ==
LOC: OR 12:41 → 4SSUR 16:40 → OR 12-13 16:21 → OBSVTOIN 12-14 14:36
PROVIDERS: ADMIT Orthopaedic Surgery; ATTEND Orthopaedic Surgery
PROC: 3E0T3BZ Introduction of Anesthetic Agent into Peripheral Nerves and Plexi, Percutaneous Approach (ICD-10-PCS; 2021-12-12)
PROC: 0SRB04A Replacement of Left Hip Joint with Ceramic on Polyethylene Synthetic Substitute, Uncemented, Open Approach (ICD-10-PCS; principal; 2021-12-13)
PROC: 8E0YXBF Computer Assisted Procedure of Lower Extremity, With Fluoroscopy (ICD-10-PCS; 2021-12-13)
DX: M16.12 Unilateral primary osteoarthritis, left hip (principal); D62 Acute posthemorrhagic anemia; Z20.822 Contact with and (suspected) exposure to COVID-19; J32.9 Chronic sinusitis, unspecified; R73.03 Prediabetes; G47.33 Obstructive sleep apnea (adult) (pediatric); G89.29 Other chronic pain; E78.5 Hyperlipidemia, unspecified; I10 Essential (primary) hypertension; K21.9 Gastro-esophageal reflux disease without esophagitis; M19.90 Unspecified osteoarthritis, unspecified site; Z88.1 Allergy status to other antibiotic agents; Z79.82 Long term (current) use of aspirin; Z79.899 Other long term (current) drug therapy; Z80.3 Family history of malignant neoplasm of breast; Z80.8 Family history of malignant neoplasm of other organs or systems; Z90.710 Acquired absence of both cervix and uterus; Z96.659 Presence of unspecified artificial knee joint; Z98.42 Cataract extraction status, left eye; Z98.41 Cataract extraction status, right eye; Z90.49 Acquired absence of other specified parts of digestive tract
CPT/HCPCS: 73501; 80048; 85025; 85610; 86850; 86900; 86901; 87070; 87635; 88300

== ENCOUNTER 2023-12-18 23:28 | Emergency (ER) | payer MEDICARE ==
[2023-12-18 23:42] VITALS: RESP 18; TEMP 98.9
--- NOTE | 2023-12-18 23:44 | ED ---
Chest Pain HPI - General Chief Complaint: Chest Pain Stated Complaint: chest pain Time Seen by Provider: 12/18/23 23:34 Source: patient, family Mode of arrival: wheelchair Limitations: no limitations - History of Present Illness MD Complaint: chest pain Onset/Timin -: hour(s) Onset: during rest Pain Location: substernal Pain Radiation: back Severity: severe Quality: tightness Consistency: intermittent Improves With: nitroglycerin Worsens With: nothing Treatments Prior to Arrival: nitroglycerin - Related Data Home Medications Medication Instructions Recorded Confirmed Aspirin [Adult Low Dose Aspirin EC] 81 mg PO HS 04/27/20 12/09/21 Atorvastatin [Lipitor] 40 mg PO DAILY 04/27/20 12/12/21 Cholecalciferol [Vitamin D3 (25 25 mcg PO DAILY 04/27/20 12/09/21 Mcg = 1000 Iu)] DULoxetine HCL [Cymbalta] 30 mg PO BID 04/27/20 12/12/21 Losartan [Cozaar] 50 mg PO BID 04/27/20 12/12/21 Metoprolol Tartrate [Lopressor] 100 mg PO BID 04/27/20 12/12/21 Multivitamins, Thera [Multivitamin 1 tab PO DAILY 04/27/20 12/09/21 (formulary)] Omeprazole 20 mg PO BID 04/27/20 12/12/21 Oxybutynin Chloride [Oxybutynin 15 mg PO HS 04/27/20 12/12/21 Chloride ER] Ubidecarenone [Co Q-10] 100 mg PO DAILY 04/27/20 12/09/21 traMADol HCL 25 mg PO QAM 04/27/20 12/12/21 Previous Rx's Medication Instructions Recorded Aspirin [Adult Low Dose Aspirin EC] 81 mg PO BID #60 tab 12/13/21 Docusate [Colace] 100 mg PO DAILY #30 capsule 12/15/21 Ferrous Sulfate [Iron (65 MG 325 mg PO BID #60 tab 12/15/21 Elemental)] HYDROcodone/APAP 7.5-325MG [Leslie 1 each PO Q6HR PRN #28 tab 12/15/21 7.5] Allergies Allergy/AdvReac Type Severity Reaction Status Date / Time amoxicillin Allergy GI bleed Verified 12/12/21 13:10 erythromycin base Allergy Rash/Hives Verified 12/12/21 13:10 Review of Systems ROS Statement: Those systems with pertinent positive or pertinent negative responses have been documented in the HPI. ROS Other: All systems not noted in ROS Statement are negative. Constitutional: Denies: fever, chills Respiratory: Denies: cough, dyspnea Cardiovascular: Reports: chest pain. Denies: palpitations, orthopnea, edema, syncope Gastrointestinal: Reports: abdominal pain. Denies: nausea, vomiting Genitourinary: Denies: dysuria, hematuria Musculoskeletal: Denies: back pain Skin: Denies: rash Neurological: Denies: headache, weakness, numbness EKG Findings - EKG Results: EKG: interpreted by ERMD, sinus rhythm, normal axis, normal QRS, normal ST/T (Rate 62 bpm) Past Medical History Past Medical History: GERD/Reflux, Hyperlipidemia, Hypertension, Sleep Apnea/CPAP/BIPAP Additional Past Medical History / Comment(s): "PRE DIABETIC" WATCHING DIET , DOES NOT USE CPAP MACHINE, History of Any Multi-Drug Resistant Organisms: None Reported Past Surgical History: Cholecystectomy, Hysterectomy, Joint Replacement, Orthopedic Surgery Additional Past Surgical History / Comment(s): total hysterectomy, cholecystectomy, bilateral cataract surgery,RIGHT KNEE ACL reconstruction, RIGHT KNEE arthroscopy 3, right knee total knee replacement with subsequent revision, spacer put in right knee, left knee meniscus repair, left shoulder surgery. RIGHT SHOULDER SURGERY, right knee revision 10/2022 Past Anesthesia/Blood Transfusion Reactions: Previous Problems w/ Anesthesia Additional Past Anesthesia/Blood Transfusion Reaction / Comment(s): very shallow breathing- respiration only 3 per patient received naracan with knee surgery in 2019 at [place]. elevated blood pressure in recovery room with shoulder surgery Past Psychological History: No Psychological Hx Reported Smoking Status: Never smoker Past Alcohol Use History: Rare Past Drug Use History: None Reported - Past Family History Mother Family Medical History: Cancer Additional Family Medical History / Comment(s): BREAST CANCER Father Family Medical History: Cancer Additional Family Medical History / Comment(s): THROAT CANCER General Exam Limitations: no limitations General appearance: alert, in no apparent distress Head exam: Present: atraumatic, normocephalic Eye exam: Present: normal appearance. Absent: scleral icterus, conjunctival injection Neck exam: Present: normal inspection Respiratory exam: Present: normal lung sounds bilaterally. Absent: respiratory distress, wheezes, rales, rhonchi, stridor Cardiovascular Exam: Present: regular rate, normal rhythm, normal heart sounds. Absent: systolic murmur, diastolic murmur, rubs, gallop GI/Abdominal exam: Present: soft. Absent: distended, tenderness, guarding, rebound, rigid, mass Extremities exam: Present: normal inspection, normal capillary refill. Absent: pedal edema, calf tenderness Back exam: Present: normal inspection. Absent: CVA tenderness (R), CVA tenderness (L) Neurological exam: Present: alert Skin exam: Present: warm, dry, intact, normal color. Absent: rash Course Vital Signs 12/18/23 12/19/23 12/19/23 23:30 01:01 03:17 Temperature 98.9 F Pulse Rate 63 62 60 Respiratory 18 18 18 Rate Blood Pressure 179/84 150/79 175/86 O2 Sat by Pulse 100 99 100 Oximetry Chest Pain [facility] - MDM The patient had chest x-ray that I interpreted as negative for widened mediastinum, congestive heart failure, acute infiltrate. The patient had CT scan of the chest, abdomen and pelvis, which I interpreted as negative for aortic dissection and negative for acute pulmonary embolism Patient is 73-year-old woman presenting to have evaluation of chest pain radiating to the back and moderately hypertensive on arrival. Given the significant she placed on the radiation of pain to the back and the hypertension, CT scan is obtained to rule out dissection. The patient was feeling better here following treatment and wanted to go home. She did not want to stay for serial cardiac enzymes. We discussed further care including follow- up and return parameters. Was pt. sent in by a medical professional or institution (, PA, TECHNICIAN [employer]ANING, urgent care, hospital, or [facility]...) When possible be specific @ -[No] Did you speak to anyone other than the patient for history (EMS, parent, family, police, friend...)? What history was obtained from this source @ -[Family contributed to history Did you review nursing and triage notes (agree or disagree)? Why? @ -[I reviewed and agree with nursing and triage notes] Were old charts reviewed (outside hosp., previous admission, EMS record, old EKG, old radiological studies, urgent care reports/EKG's, [facility] records)? Report findings @ -[No old charts were reviewed] Differential Diagnosis (chest pain, altered mental status, abdominal pain women, abdominal pain men, vaginal bleeding, weakness, fever, dyspnea, syncope, headache, dizziness, GI bleed, back pain, seizure, CVA, palpatations, mental health, musculoskeletal)? @ -Differential Chest Pain: Stable Angina, Unstable Angina, STEMI, NSTEMI Aortic Dissection, Pneumothorax, Musculoskeletal, Esophageal Spasm GERD, Cholecystitis, Pancreatitis, Zoster, this is not meant to be an all-inclusive list. EKG interpreted by me (3pts min.). @ -[I interpreted as above] X-rays interpreted by me (1pt min.). @ -[None done] CT interpreted by me (1pt min.). @ -[I interpreted as above U/S interpreted by me (1pt. min.). @ -[None done] What testing was considered but not performed or refused? (CT, X-rays, U/S, labs)? Why? @ -[None] What meds were considered but not given or refused? Why? @ -[None] Did you discuss the management of the patient with other professionals (professionals i.e. , PA, TECHNICIAN [employer], lab, RT, psych nurse, social science teacher, java developer with security clearance, teacher, dental officer, complex case manager)? Give summary @ -[No] Was smoking cessation discussed for >3mins.? @ -[No] Was critical care preformed (if so, how long)? @ -[No] Were there social determinants of health that impacted care today? How? (Homelessness, low income, unemployed, alcoholism, drug addiction, transportation, low edu. Level, literacy, decrease access to med. care, senior care, rehab)? @ -[No] Was there de-escalation of care discussed even if they declined (Discuss DNR or withdrawal of care, Hospice)? DNR status @ -[No] What co-morbidities impacted this encounter? (DM, HTN, Smoking, COPD, CAD, Cancer, CVA, ARF, Chemo, Hep., AIDS, mental health diagnosis, sleep apnea, morbid obesity)? @ -[Hypertension Was patient admitted / discharged? Hospital course, mention meds given and route, prescriptions, significant lab abnormalities, going to OR and other pertinent info. @ -[hospital course] Undiagnosed new problem with uncertain prognosis? @ -[No] Drug Therapy requiring intensive monitoring for toxicity (Heparin, Nitro, Insulin, Cardizem)? @ -[No] Were any procedures done? @ -[No] Diagnosis/symptom? @ -Acute chest pain Acute on chronic hypertension Acute, or Chronic, or Acute on Chronic? @ -[default] Uncomplicated (without systemic symptoms) or Complicated (systemic symptoms)? @ -[Uncomplicated Side effects of treatment? @ -[No] Exacerbation, Progression, or Severe Exacerbation? @ -[No] Poses a threat to life or bodily function? How? (Chest pain, [place], [place], pneumonia, PE, COPD, DKA, ARF, appy, cholecystitis, CVA, Diverticulitis, Homicidal, Suicidal, threat to staff... and all critical care pts) @ -[There is some risk at this point however patient elects outpatient follow- up. Disposition Clinical Impression: Chest pain, Ileus Disposition: HOME SELF-CARE Condition: Good Instructions (If sedation given, give patient instructions): Chest Pain (ED), Ileus (ED) Is patient prescribed a controlled substance at d/c from ED?: No Referrals: Elier Yancey DO [Primary Care Provider] - 1-2 days
[2023-12-19 00:55] LABS: Basophils # (A) 0.1 k/uL (0-0.2); Basophils % (A) 1 %; Eosinophils # (A) 0.2 k/uL (0-0.7); Eosinophils % (A) 3 %; HCT 40.7 % (34.0-46.0); Lymphocytes # (A) 2.6 k/uL (1.0-4.8); Lymphocytes % (A) 27 %; MCH 29.3 pg (25.0-35.0); MCV 91.4 fL (80.0-100.0); Mean Platelet Volume 7.3; Monocytes # (A) 0.6 k/uL (0-1.0); Monocytes % (A) 6 %; Neutrophils # (A) 5.8 k/uL (1.3-7.7); Neutrophils % (A) 62 %; Platelet Count 249 k/uL (150-450); RBC 4.45 m/uL (3.80-5.40); RDW 13.6 % (11.5-15.5); WBC 9.4 k/uL (3.8-10.6)
[2023-12-19] MEDS: ASPIRIN 81 MG PO STA (00:55)
--- NOTE | 2023-12-19 00:56 | XR ---
EXAM: XR Chest, 2 Views CLINICAL HISTORY: ITS.REASON XR Reason: Chest Pain TECHNIQUE: Frontal and lateral views of the chest. COMPARISON: No relevant prior studies available. FINDINGS: Lungs: Unremarkable. No consolidation. Pleural space: Unremarkable. No pneumothorax. Heart: Unremarkable. No cardiomegaly. Mediastinum: Unremarkable. Normal mediastinal contour. Bones/joints: Unremarkable. No acute fracture. IMPRESSION: No consolidation.
[2023-12-19 01:07] LABS: ALT 54 U/L (4-34); AST 145 U/L (14-36); African American GFR (CKD) >90 (>60 ml/min/1.73 sqM); Alkaline Phosphatase 113 U/L (38-126); Amylase 73 U/L (30-110); Anion Gap 5 mmol/L; Blood Urea Nitrogen 17 mg/dL (7-17); Carbon Dioxide 28 mmol/L (22-30); Chloride 106 mmol/L (98-107); Glucose 101 mg/dL (74-99); Lipase 421 U/L (23-300); Non-African American GFR(CKD) >90 (>60 ml/min/1.73 sqM); Potassium 4.5 mmol/L (3.5-5.1); Sodium 139 mmol/L (137-145); Total Bilirubin 0.7 mg/dL (0.2-1.3)
[2023-12-19 01:12] LABS: INR 0.9 (<1.2); Partial Thromboplastin Time 22.9 sec (22.0-30.0); Prothrombin Time 9.8 sec (10.0-12.5)
[2023-12-19 03:24] VITALS: BP 175/86; PULSE 60
--- NOTE | 2023-12-19 03:31 | CT ---
EXAM: CT Abdomen and Pelvis With Intravenous Contrast CLINICAL HISTORY: mid back pain TECHNIQUE: Axial computed tomography images of the abdomen and pelvis with intravenous contrast. CTDI is 11.9 mGy and DLP is 947.1 mGy-cm. This CT exam was performed using one or more of the following dose reduction techniques: automated exposure control, adjustment of the mA and/or kV according to patient size, and/or use of iterative reconstruction technique. Coronal and sagittal reformatted images were created and reviewed. 1066 images COMPARISON: No relevant prior studies available. FINDINGS: Lung bases: Unremarkable. No mass. No consolidation. ABDOMEN: Liver: Unremarkable. No mass. Gallbladder and bile ducts: Moderate intra-and extra-hepatic biliary ductal dilatation. Common duct measures about 12 mm in maximal diameter with gradual tapering to the ampulla. These can be related to patient's age and cholecystectomy. Pancreas: Unremarkable. No mass. No ductal dilation. Spleen: Unremarkable. No splenomegaly. Adrenals: Unremarkable. No mass. Kidneys and ureters: Small bilateral renal cysts. No hydronephrosis. Stomach and bowel: Mild circumferential wall thickening of the duodenum and proximal jejunum measuring up to 8mm may suggest enteritis. Mild dilatation of short segment of proximal jejunum in the left upper quadrant measuring up to 2.9 cm on series 602 image 20 may suggest focal ileus. Colonic diverticulosis. PELVIS: Appendix: No findings to suggest acute appendicitis. Bladder: Unremarkable. No mass. Reproductive: Unremarkable as visualized. ABDOMEN and PELVIS: Intraperitoneal space: Unremarkable. No free air. No significant fluid collection. Bones/joints: Total left hip replacement prostheses cause large amount of streak artifact, which decreases sensitivity on associated images. Soft tissues: Atrophic left psoas and iliopsoas muscles. Vasculature: Moderate amount of atherosclerotic calcifications. No abdominal aortic aneurysm. Lymph nodes: Unremarkable. No enlarged lymph nodes. Other findings: Largest is on the left measuring about 1.4 x 2.2 cm. IMPRESSION: Mild circumferential wall thickening of the duodenum and proximal jejunum can be due to under distention versus enteritis. Mild dilatation of short segment of proximal jejunum in the left upper quadrant may suggest focal ileus.
--- NOTE | 2023-12-19 03:34 | CT ---
EXAM: CT Angiography Chest With Intravenous Contrast CLINICAL HISTORY: chest pain, possible PE TECHNIQUE: Axial computed tomographic angiography images of the chest with intravenous contrast. CTDI is 15.6 mGy and DLP is 947.1 mGy-cm. This CT exam was performed using one or more of the following dose reduction techniques: automated exposure control, adjustment of the mA and/or kV according to patient size, and/or use of iterative reconstruction technique. MIP reconstructed images were created and reviewed. Coronal and sagittal reformatted images were created and reviewed. 668 images COMPARISON: No relevant prior studies available. FINDINGS: Pulmonary arteries: Unremarkable. No pulmonary embolism. Aorta: No acute findings. No thoracic aortic aneurysm. Lungs: Small amount of scattered atelectasis, likely related to underinflation. No mass. Pleural space: Unremarkable. No significant effusion. No pneumothorax. Heart: Mild cardiomegaly. No significant pericardial effusion. No evidence of RV dysfunction. Bones/joints: Osteopenia. Moderate degenerative changes. Soft tissues: Unremarkable. Lymph nodes: Unremarkable. No enlarged lymph nodes. IMPRESSION: No pulmonary embolism. No thoracic aortic aneurysm or dissection.
== END 2023-12-19 04:46 | disposition home or self-care (01) ==
LOC: EC 23:28
DX: R07.89 Other chest pain (principal); K56.7 Ileus, unspecified; I10 Essential (primary) hypertension; Z88.1 Allergy status to other antibiotic agents; Z79.899 Other long term (current) drug therapy
CPT/HCPCS: 36415; 93005; 80053; 82150; 83690; 83735; 84484; 85025; 85610; 85730; 71046; 71275; 74177; 99285; Q9967

== ENCOUNTER → 2024-07-17 | Outpatient (CLI) | payer MEDICARE ==
[2024-07-17 14:24] LABS: African American GFR (CKD) >90 (>60 ml/min/1.73 sqM); Blood Urea Nitrogen 17 mg/dL (7-17); Non-African American GFR(CKD) 81 (>60 ml/min/1.73 sqM)
--- NOTE | 2024-07-17 14:59 | CT ---
EXAMINATION TYPE: CT brain wo/w con CT DLP: 2232 mGycm, Automated exposure control for dose reduction was used. DATE OF EXAM: 07/17/2024 2:49 PM COMPARISON: None. CLINICAL INDICATION:Female, 73 years old with history of R51.9 HEADACHES R SIDE; PHH, rt sided headac he after falling and hitting head on rocks x1 month ago TECHNIQUE: Axial CT images of the brain were obtained followed by contrast enhanced axial images of t he brain with 100 cc of ISO-view 370 IV contrast. One or more CT dose reduction strategies were utili zed during this examination. Coronal and sagittal reformats reviewed. FINDINGS: Extra-axial spaces: No abnormal extra-axial fluid collections. Ventricular system: Within normal limits Cerebral parenchyma: Age-appropriate mild cerebral volume loss. No acute intraparenchymal hemorrhage or mass effect. The cox-white junction is well differentiated. Scattered hypoattenuating areas are seen within the periventricular white matter. No abnormal enhancement is seen after the administratio n of intravenous contrast. Cerebellum: Unremarkable. Mass effect: No evidence of midline shift. Intracranial vasculature: Atherosclerotic calcifications of the intracranial vessels. Soft tissues: Normal. Calvarium/osseous structures: No depressed skull fracture. Paranasal sinuses and mastoid air cells: Clear. Visualized orbits: Bilateral aphakia IMPRESSION: 1. No acute intracranial process and no evidence to suggest intracranial mass. 2. Nonspecific white matter changes, likely secondary to chronic small vessel ischemic disease. [facility], , 07/17/2024 2:57 PM
== END | disposition home or self-care (01) ==
LOC: RADCTMAIN 13:35
PROVIDERS: ATTEND Family Medicine
DX: I67.2 Cerebral atherosclerosis (principal); R90.82 White matter disease, unspecified; R29.6 Repeated falls
CPT/HCPCS: 82565; 84520; 70470; 36415; Q9967